=== PATIENT | female | born 1970 | race Caucasian/White ===

== ENCOUNTER 2019-07-10 21:59 | Emergency (ER) | payer OTHER ==
[2019-07-10 22:06] VITALS: TEMP 98.3
[2019-07-10 22:39] VITALS: RESP 18
[2019-07-10] MEDS: SODIUM CHLORIDE 0.9% 1,000 ML IV ONE (22:57)
[2019-07-10 23:05] LABS: Basophils # (A) 0.1 k/uL (0-0.2); Basophils % (A) 1 %; Eosinophils # (A) 0.7 k/uL (0-0.7); Eosinophils % (A) 10 %; HCT 39.8 % (34.0-46.0); HGB 12.6 gm/dL (11.4-16.0); Lymphocytes # (A) 1.2 k/uL (1.0-4.8); Lymphocytes % (A) 17 %; MCH 30.6 pg (25.0-35.0); MCHC 31.7 g/dL (31.0-37.0); MCV 96.5 fL (80.0-100.0); Mean Platelet Volume 10.3; Monocytes # (A) 0.5 k/uL (0-1.0); Monocytes % (A) 7 %; Neutrophils # (A) 4.7 k/uL (1.3-7.7); Neutrophils % (A) 64 %; Platelet Count 259 k/uL (150-450); RBC 4.13 m/uL (3.80-5.40); RDW 11.8 % (11.5-15.5); WBC 7.4 k/uL (3.8-10.6)
--- NOTE | 2019-07-10 23:05 | ED ---
Dizziness [facility] - General Chief Complaint: Dizziness Stated Complaint: Allergic reaction Time Seen by Provider: 07/10/19 22:05 Source: patient Mode of arrival: ambulatory Limitations: no limitations - History of Present Illness Initial Comments: this patient is a 48-year-old woman who presents to be evaluated for an episode of lightheadedness that had come on tonight when she was getting ready for work. The patient had earlier in the day applied some permethrin cream. She states that she was in the shower washing it off and getting ready to go to work when she felt like she might pass out. She states she was feeling lightheaded and dizzy. She also noted that her hands were feeling tingly. When she got out of the shower her significant other states that she appeared to be a little confused or disoriented. The patient states that she felt this way for 20-30 minutes and then was feeling better by the time she got here. The patient had called and for work and then decided to be evaluated here. She did not experience any chest pain, palpitations, dyspnea or diaphoresis. MD Complaint: lightheadedness, near syncope -: minutes(s) Timing: gradual onset Description: lightheadedness History of Same: No History of Trauma: No Severity: moderate Improves With: nothing Worsens With: nothing Associated Symptoms: denies other symptoms - Related Data Allergies Allergy/AdvReac Type Severity Reaction Status Date / Time No Known Allergies Allergy Verified 07/10/19 22:03 Review of Systems ROS Statement: Those systems with pertinent positive or pertinent negative responses have been documented in the HPI. ROS Other: All systems not noted in ROS Statement are negative. Constitutional: Denies: fever Eyes: Denies: vision change Respiratory: Denies: cough, dyspnea Cardiovascular: Reports: syncope (near-syncope). Denies: chest pain, palpitations, orthopnea Gastrointestinal: Denies: abdominal pain, nausea, vomiting, diarrhea, melena, hematochezia Genitourinary: Denies: dysuria, hematuria Musculoskeletal: Denies: back pain Skin: Denies: rash Neurological: Denies: headache, weakness, numbness Past Medical History Past Medical History: Diabetes Mellitus, Hypertension History of Any Multi-Drug Resistant Organisms: None Reported Past Surgical History: Cholecystectomy, Hernia Repair, Tubal Ligation Past Psychological History: No Psychological Hx Reported Smoking Status: Never smoker Past Alcohol Use History: None Reported Past Drug Use History: None Reported General Exam Limitations: no limitations General appearance: alert, in no apparent distress Head exam: Present: atraumatic, normocephalic Eye exam: Present: normal appearance. Absent: scleral icterus, conjunctival injection ENT exam: Present: mucous membranes dry Neck exam: Present: normal inspection Respiratory exam: Present: normal lung sounds bilaterally. Absent: respiratory distress, wheezes, rales, rhonchi, stridor Cardiovascular Exam: Present: regular rate, normal rhythm, normal heart sounds. Absent: systolic murmur, diastolic murmur, rubs, gallop GI/Abdominal exam: Present: soft. Absent: distended, tenderness, guarding, rebound, rigid, mass Extremities exam: Present: normal inspection, normal capillary refill. Absent: pedal edema, calf tenderness Back exam: Present: normal inspection. Absent: CVA tenderness (R), CVA tenderness (L) Neurological exam: Present: alert, oriented X3, CN II-XII intact. Absent: motor sensory deficit Skin exam: Present: warm, dry, intact, normal color. Absent: rash Course Vital Signs 07/10/19 07/10/19 22:00 22:06 Temperature 98.3 F Pulse Rate 81 85 Respiratory 16 18 Rate Blood Pressure 145/77 139/84 O2 Sat by Pulse 96 97 Oximetry EKG Findings - EKG Results: EKG: interpreted by COLEEN CAMPOS, sinus rhythm (rate 82 bpm), normal axis, normal QRS, normal ST/T - [place], Pacemaker, Normal: Normal tracing: normal tracing Medical Decision Making - Lab Data Result diagrams: 07/10/19 22:45 07/10/19 22:45 Lab Results 07/10/19 07/10/19 07/10/19 Range/Units 22:45 22:45 23:02 WBC 7.4 (3.8-10.6) k/uL RBC 4.13 (3.80-5.40) m/uL Hgb 12.6 (11.4-16.0) gm/dL Hct 39.8 (34.0-46.0) % MCV 96.5 (80.0-100.0) fL MCH 30.6 (25.0-35.0) pg MCHC 31.7 (31.0-37.0) g/dL RDW 11.8 (11.5-15.5) % Plt Count 259 (150-450) k/uL Neutrophils % 64 % Lymphocytes % 17 % Monocytes % 7 % Eosinophils % 10 % Basophils % 1 % Neutrophils # 4.7 (1.3-7.7) k/uL Lymphocytes # 1.2 (1.0-4.8) k/uL Monocytes # 0.5 (0-1.0) k/uL Eosinophils # 0.7 (0-0.7) k/uL Basophils # 0.1 (0-0.2) k/uL Sodium 135 L (137-145) mmol/L Potassium 4.2 (3.5-5.1) mmol/L Chloride 102 (98-107) mmol/L Carbon Dioxide 27 (22-30) mmol/L Anion Gap 6 mmol/L BUN 17 (7-17) mg/dL Creatinine 1.05 H (0.52-1.04) mg/dL Est GFR (CKD-EPI)AfAm 74 (>60 ml/min/1.73 sqM) Est GFR (CKD-EPI)NonAf 64 (>60 ml/min/1.73 sqM) Glucose 331 H (74-99) mg/dL Calcium 10.0 (8.4-10.2) mg/dL Urine HCG, Qual Not Detected (Not Detectd) Disposition Clinical Impression: Hyperglycemia Disposition: HOME SELF-CARE Condition: Good Instructions (If sedation given, give patient instructions): Dizziness (ED), Diabetic Hyperglycemia (ED) Is patient prescribed a controlled substance at d/c from ED?: No Referrals: Feliz Bush MD [Primary Care Provider] - 1-2 days
[2019-07-10 23:18] LABS: Potassium 4.2 mmol/L (3.5-5.1)
[2019-07-11] MEDS ORDERED: INSULIN REGULAR 100 UNIT/ML VIAL SQ STA (00:17)
[2019-07-11] MEDS ORDERED: SODIUM CHLORIDE 0.9% 1,000 ML IV ONE (00:17)
[2019-07-11 01:17] LABS: Glucose,Whole Blood 315 mg/dL (75-99)
[2019-07-11] MEDS: SODIUM CHLORIDE 0.9% 1,000 ML IV ONE (01:46)
[2019-07-11 02:21] VITALS: BP 130/83; PULSE 71
== END 2019-07-11 01:51 | disposition home or self-care (01) ==
LOC: MERGE 21:59 → EC 21:59
DX: E11.65 Type 2 diabetes mellitus with hyperglycemia (principal); R42 Dizziness and giddiness; Z53.20 Procedure and treatment not carried out because of patient's decision for unspecified reasons
CPT/HCPCS: 36415; 80048; 81025; 85025; 93005; 99284

== ENCOUNTER → 2019-09-30 | Outpatient (CLI) | payer OTHER ==
--- NOTE | 2019-09-30 14:54 | US ---
EXAMINATION TYPE: US pelvis complete transvag DATE OF EXAM: 09/30/2019 COMPARISON: NONE CLINICAL HISTORY: N92.0 Menorrhagia. TECHNIQUE: . Transabdominal sonographic images of the pelvis were acquired. Transvaginal sonographi c images were medically necessary to better assess the following anatomy: uterus and ovaries Date of LMP: 1 week ago EXAM MEASUREMENTS: Uterus: 9.0 x 4.6 x 4.7 cm Endometrial Stripe: 0.4 cm Right Ovary: Obscured by bowel gas Left Ovary: Obscured by bowel gas 1. Uterus: Anteverted heterogeneous echotexture. Hypoechoic area measuring 1.5 x 1.1 x 1.6 cm, pos sible fibroid vs other 2. Endometrium: wnl 3. Right Ovary: Obscured by overlying bowel gas 4. Left Ovary: Obscured by overlying bowel gas 5. Bilateral Adnexa: wnl as visualized, obscured by bowel gas 6. Posterior cul-de-sac: wnl IMPRESSION: 1. Diffusely heterogenous uterine myometrium with multiple probable small noncircumscribed leiomyomas and a solitary probable leiomyoma that is well-circumscribed measuring 1.6 cm. 2. Obscuration of the bilateral ovaries by overlying bowel gas.
== END | disposition home or self-care (01) ==
LOC: RADUSWWP 13:56
PROVIDERS: ATTEND Obstetrics & Gynecology
DX: N85.8 Other specified noninflammatory disorders of uterus (principal); N92.0 Excessive and frequent menstruation with regular cycle
CPT/HCPCS: 76830; 76856

== ENCOUNTER → 2020-01-29 | Outpatient (CLI) | payer OTHER ==
[2020-01-29 10:34] LABS: Basophils % (A) 1 %; Eosinophils # (A) 0.4 k/uL (0-0.7); Eosinophils % (A) 5 %; HCT 29.1 % (34.0-46.0); HGB 9.2 gm/dL (11.4-16.0); Hypochromasia Slight; Lymphocytes # (A) 1.4 k/uL (1.0-4.8); Lymphocytes % (A) 16 %; MCH 32.2 pg (25.0-35.0); MCHC 31.7 g/dL (31.0-37.0); MCV 101.8 fL (80.0-100.0); Macrocytosis Slight; Mean Platelet Volume 9.7; Monocytes # (A) 0.7 k/uL (0-1.0); Monocytes % (A) 8 %; Neutrophils # (A) 6.2 k/uL (1.3-7.7); Neutrophils % (A) 70 %; Platelet Count 289 k/uL (150-450); RBC 2.86 m/uL (3.80-5.40); RDW 12.7 % (11.5-15.5); WBC 8.9 k/uL (3.8-10.6)
== END | disposition home or self-care (01) ==
LOC: LABWHC1 08:44
PROVIDERS: ATTEND Obstetrics & Gynecology
DX: Z01.818 Encounter for other preprocedural examination (principal)
CPT/HCPCS: 36415; 85025

== ENCOUNTER 2020-02-02 06:21 | Day surgery (SDC) | payer OTHER ==
[2020-01-28 08:38] VITALS: BMI 39.4
--- NOTE | 2020-02-01 16:25 | P.HPOB ---
History of Present Illness H&P Date: 02/01/20 Chief Complaint: Dysfunctional uterine bleeding Kimberly is a 49 year old female who has dysfunctional uterine bleeding. Symptoms have been worsening over time and have been present for approximately 22 years. She is interested in a permanent solution to this and she has multiple medical problems that had to be considered when discussing this type of surgery. She is scheduled for a D&C with hysteroscopy and NovaSure ablation. She is aware the small risk of concurrent cancer but declines separate surgery or separate biopsy. Her ultrasound is unremarkable with a point force and medial lining as well. She does have hypertension and diabetes for which she takes multiple medications and a NovaSure would be certainly safer than major surgery for her as well. On physical exam this is a obese female whose HEENT is unremarkable. Her heart is regular, lungs are clear abdomen soft and obese. Bowel sounds are noted. Pelvic exam is otherwise unremarkable. Past Medical History Past Medical History: Diabetes Mellitus, Fibromyalgia, GERD/Reflux, Hypertension Additional Past Medical History / Comment(s): MENORRHAGIA History of Any Multi-Drug Resistant Organisms: None Reported Past Surgical History: Section, Cholecystectomy, Hernia Repair, Tubal Ligation Additional Past Surgical History / Comment(s): COLONOSCOPY/EGD. , STATES "ABDOMINAL HERNIA" Past Anesthesia/Blood Transfusion Reactions: No Reported Reaction, Motion Sickness Past Psychological History: No Psychological Hx Reported Smoking Status: Never smoker Past Alcohol Use History: None Reported Past Drug Use History: None Reported - Past Family History Father Family Medical History: Deep Vein Thrombosis (DVT) Mother Family Medical History: No Reported History Medications and Allergies Home Medications Medication Instructions Recorded Confirmed Type Albuterol Inhaler [Ventolin Hfa 1 puff INHALATION DIRECTED PRN 01/28/20 01/28/20 History Inhaler] DULoxetine HCL [Cymbalta] 60 mg PO DAILY 01/28/20 01/28/20 History Insulin Glargine [Lantus] 25 unit SQ HS 01/28/20 01/28/20 History Insulin Lispro [humaLOG Kwikpen] 10 unit SQ AC-BRKFST 01/28/20 01/28/20 History Insulin Lispro [humaLOG Kwikpen] 12 unit SQ AC-SUPPER 01/28/20 01/28/20 History Insulin Lispro [humaLOG Kwikpen] 17 unit SQ AC-LUNCH 01/28/20 01/28/20 History [place]-3 Fatty Acids/Fish Oil [Fish 1 each PO DAILY 01/28/20 01/28/20 History Oil 1,000 mg Softgel] Pioglitazone [Actos] 30 mg PO DAILY 01/28/20 01/28/20 History Vitamin B Complex 1 each PO DAILY 01/28/20 01/28/20 History metFORMIN HCL [Glucophage] 500 mg PO BID 01/28/20 01/28/20 History Allergies Allergy/AdvReac Type Severity Reaction Status Date / Time No Known Allergies Allergy Verified 01/28/20 08:22 Exam Osteopathic Statement: *. No significant issues noted on an osteopathic structural exam other than those noted in the History and Physical/Consult. - OBG Physical Exam Breast: both: normal (no masses) Abdomen: bowel sounds normal, no diffuse tenderness, no bruit present, no guarding noted, no hepatomegaly, no splenomegaly, no mass Vulva: both: normal Vagina: normal moisture, no discharge Cervix: no lesion, no discharge Uterus: normal size, normal contour Adnexa: both: normal Anus/Rectum: normal perianal skin, no rectal mass, no hemorrhoids, heme negative
[~2020-02-02 06:21] MED LIST: Pre Op ABX Message 1 EACH MISC MISCELLANE ONE
[2020-02-02 06:52] LABS: Glucose,Whole Blood 244 mg/dL (75-99)
[2020-02-02] MEDS ORDERED: LIDOCAINE 1% (10MG/ML) FOR IV START INTRADERMA ONE (06:57)
[2020-02-02] MEDS ORDERED: LACTATED RINGERS 1,000 ML IV ONE (06:57)
[2020-02-02] MEDS ORDERED: ONDANSETRON 4 MG/2 ML VIAL ONE (07:05)
[2020-02-02] MEDS ORDERED: DEXAMETHASONE SOD PHOSPHATE 10 MG/ML 1 ML VIAL IV ONE (07:05)
[2020-02-02] MEDS ORDERED: ONDANSETRON 4 MG/2 ML VIAL IVP ONE (07:05)
[2020-02-02] MEDS ORDERED: PROPOFOL 10 MG/ML 20 ML VIAL IV ONE (07:23)
[2020-02-02] MEDS ORDERED: KETOROLAC 30 MG/ML 1 ML VIAL ONE (07:23)
[2020-02-02] MEDS ORDERED: fentaNYL (PF) 50 MCG/ML 2 ML AMP ONE (07:23)
[2020-02-02] MEDS ORDERED: LIDOCAINE 1% INJ 10MG/ML (20 ML MDV) ONE (07:23)
[2020-02-02] MEDS ORDERED: MIDAZOLAM 2 MG/2 ML VIAL ONE (07:23)
[2020-02-02] MEDS ORDERED: SUCCINYLCHOLINE CHLORIDE 100 MG/5 ML SYR IV ONE (07:23)
--- NOTE | 2020-02-02 08:02 | P.OP ---
Date of Procedure: 02/02/20 Preoperative Diagnosis: Dysfunctional uterine bleeding Postoperative Diagnosis: Same Procedure(s) Performed: D&C with hysteroscopy and NovaSure Anesthesia: PELON Surgeon: Rod Ventura Estimated Blood Loss (ml): 3 Pathology: other (Uterine curettings) Condition: stable Disposition: same day Operative Findings: Pathology pending Description of Procedure: Patient was taken to the operating suite where a general anesthetic was found be adequate. She was prepped and draped in normal sterile fashion and placed in dorsal lithotomy position. Initially a speculum was inserted into the vagina and the anterior lip of the cervix was identified and grasped with surgeon's then dilated and sounded to 9 cm. Once this was accomplished camera was inserted. No gross pathology was noted therefore camera was removed and sharp curettings of the endometrium was obtained. All tissues collected and placed on Telfa area then sent to pathology. NovaSure system was then inserted with a length of 4 and a width of 2.5 it was tested and passed its patency test it was enabled and burned for 65 seconds. Conclusion the burn NovaSure system was removed and camera was reinserted with good burn noted. All incidents were then removed. Sponge, lap, needle counts were all correct 2. Patient was then taken to the recovery room in stable and satisfactory condition. Plan - Discharge Summary Discharge Rx Participant: Yes New Discharge Prescriptions: No Action Albuterol Inhaler [Ventolin Hfa Inhaler] 1 puff INHALATION DIRECTED PRN PRN Reason: Shortness Of Breath DULoxetine HCL [Cymbalta] 60 mg PO DAILY metFORMIN HCL [Glucophage] 500 mg PO BID Insulin Glargine [Lantus] 25 unit SQ HS Vitamin B Complex 1 each PO DAILY [place]-3 Fatty Acids/Fish Oil [Fish Oil 1,000 mg Softgel] 1 each PO DAILY Insulin Lispro [humaLOG Kwikpen] 10 unit SQ AC-BRKFST Insulin Lispro [humaLOG Kwikpen] 17 unit SQ AC-LUNCH Insulin Lispro [humaLOG Kwikpen] 12 unit SQ AC-SUPPER Pioglitazone [Actos] 30 mg PO DAILY Discharge Medication List Albuterol Inhaler [Ventolin Hfa Inhaler] 1 puff INHALATION DIRECTED PRN 01/28/20 [History] DULoxetine HCL [Cymbalta] 60 mg PO DAILY 01/28/20 [History] Insulin Glargine [Lantus] 25 unit SQ HS 01/28/20 [History] Insulin Lispro [humaLOG Kwikpen] 10 unit SQ AC-BRKFST 01/28/20 [History] Insulin Lispro [humaLOG Kwikpen] 12 unit SQ AC-SUPPER 01/28/20 [History] Insulin Lispro [humaLOG Kwikpen] 17 unit SQ AC-LUNCH 01/28/20 [History] [place]-3 Fatty Acids/Fish Oil [Fish Oil 1,000 mg Softgel] 1 each PO DAILY 01/28/20 [History] Pioglitazone [Actos] 30 mg PO DAILY 01/28/20 [History] Vitamin B Complex 1 each PO DAILY 01/28/20 [History] metFORMIN HCL [Glucophage] 500 mg PO BID 01/28/20 [History]
[2020-02-02 08:14] LABS: Glucose,Whole Blood 217 mg/dL (75-99)
[2020-02-02 08:19] VITALS: TEMP 96.9
[2020-02-02] MEDS ORDERED: SODIUM CHLORIDE 0.9% 1,000 ML IV ONE (08:37)
[2020-02-02 09:20] VITALS: BP 139/73; PULSE 78; RESP 16
== END 2020-02-02 09:49 | disposition home or self-care (01) ==
LOC: OR 06:21
PROVIDERS: ATTEND Obstetrics & Gynecology
DX: N93.8 Other specified abnormal uterine and vaginal bleeding (principal); N84.0 Polyp of corpus uteri; J45.909 Unspecified asthma, uncomplicated; I10 Essential (primary) hypertension; E11.9 Type 2 diabetes mellitus without complications; N28.9 Disorder of kidney and ureter, unspecified; M79.7 Fibromyalgia; K21.9 Gastro-esophageal reflux disease without esophagitis; Z90.49 Acquired absence of other specified parts of digestive tract; Z79.4 Long term (current) use of insulin; Z79.899 Other long term (current) drug therapy; Z98.51 Tubal ligation status; Z98.891 History of uterine scar from previous surgery; Z82.49 Family history of ischemic heart disease and other diseases of the circulatory system
CPT/HCPCS: 84703; 58563; J2250; J2405; J2001; J3010; J1885; J0330; J2704; 88305

== ENCOUNTER → 2020-02-25 | Outpatient (CLI) | payer SELFPAY ==
--- NOTE | 2020-02-26 14:34 | MM ---
Reason for exam: screening (asymptomatic). Last mammogram was performed 5 years and 10 months ago. History: Family history of breast cancer in paternal aunt. Physical Findings: A clinical breast exam by your physician is recommended on an annual basis and results should be correlated with mammographic findings. MG Screening Mammo w CAD Bilateral CC and MLO view(s) were taken. Prior study comparison: April 12, 2014, bilateral MG screening mammo w CAD. There are scattered fibroglandular densities. There is no discrete abnormality. No significant changes when compared with prior studies. ASSESSMENT: Negative, BI-RAD 1 RECOMMENDATION: Routine screening mammogram of both breasts in 1 year.
== END | disposition home or self-care (01) ==
LOC: RADMAMWWP 13:05
PROVIDERS: ATTEND Obstetrics & Gynecology
DX: Z12.31 Encounter for screening mammogram for malignant neoplasm of breast (principal)
CPT/HCPCS: 77067

== ENCOUNTER → 2020-04-25 | Outpatient (CLI) | payer OTHER ==
--- NOTE | 2020-04-25 10:53 | MR ---
EXAMINATION TYPE: MR knee LT wo con DATE OF EXAM: 04/25/2020 COMPARISON: None HISTORY: Left Knee Pain TECHNIQUE: Multiplanar, multisequence imaging of the left knee is performed without IV contrast. FINDINGS: Exam is limited by motion artifact. There is hypertrophic changes and narrowing of the join t space compatible with severe osteoarthritis. No erosive changes. Medial collateral lateral collateral ligaments are intact. There is ill definition of the insertion o f the ACL suggestive of strain. PCL is intact. Abnormal signal in the anterior horn of the lateral meniscus and posterior horn of the medial meniscu s compatible with tear. Subcutaneous edema is seen and there is a small amount of fluid in the suprapatellar bursa. Tiny area of abnormal signal within the lateral margin of the bursa could represent a small foreign body. Ther e does appear to be a grade III chondromalacia of the lateral patellar facet. Possible small cartilag inous fragment in the differential diagnosis. Patellar and quadriceps tendons intact. No diagnostic evidence of fracture. No sizable area of marrow edema. A small focal area of marrow danny ma involving the articular surface of the knee joint likely post arthritic. Chondromalacia the articu lar femoral cartilage noted. IMPRESSION: 1. Limited exam due to severe motion demonstrates findings compatible with severe osteoarthritis. Deg enerative meniscal tears involving the anterior horn of the lateral meniscus and posterior horn of th e medial meniscus. 2. Ill definition of the insertion of the ACL near the intercondylar notch suggestive of strain witho ut evidence of definite tear. 3. Small suprapatellar joint effusion with changes of chondromalacia
== END | disposition home or self-care (01) ==
LOC: RADMRIMAIN 09:36
PROVIDERS: ATTEND Orthopaedic Surgery
DX: S83.242A Other tear of medial meniscus, current injury, left knee, initial encounter (principal); M25.462 Effusion, left knee

== ENCOUNTER → 2020-05-16 | Outpatient (CLI) | payer OTHER ==
[2020-05-16 11:51] LABS: Basophils # (A) 0.1 k/uL (0-0.2); Basophils % (A) 1 %; Eosinophils # (A) 0.7 k/uL (0-0.7); Eosinophils % (A) 8 %; HCT 41.3 % (34.0-46.0); HGB 13.2 gm/dL (11.4-16.0); Lymphocytes # (A) 1.7 k/uL (1.0-4.8); Lymphocytes % (A) 19 %; MCH 31.5 pg (25.0-35.0); MCHC 31.9 g/dL (31.0-37.0); MCV 98.8 fL (80.0-100.0); Monocytes # (A) 0.6 k/uL (0-1.0); Monocytes % (A) 7 %; Neutrophils # (A) 5.7 k/uL (1.3-7.7); Neutrophils % (A) 64 %; Platelet Count 237 k/uL (150-450); RBC 4.18 m/uL (3.80-5.40); RDW 13.1 % (11.5-15.5); WBC 8.9 k/uL (3.8-10.6)
[2020-05-16 18:45] LABS: Anion Gap 8.1 mmol/L (4.00-12.00); Carbon Dioxide 29.9 mmol/L (21.6-31.8); Potassium 4.7 mmol/L (3.5-5.5)
== END | disposition home or self-care (01) ==
LOC: LABWHC1 10:31
PROVIDERS: ATTEND Orthopaedic Surgery
DX: Z01.812 Encounter for preprocedural laboratory examination (principal); M23.92 Unspecified internal derangement of left knee
CPT/HCPCS: 36415; 80051; 85025

== ENCOUNTER 2020-06-29 09:43 | Day surgery (SDC) | payer OTHER ==
[2020-06-24 14:47] VITALS: BMI 45.4
--- NOTE | 2020-06-28 14:40 | HP ---
HISTORY AND PHYSICAL DATE OF SURGERY: 06/29/2020 Pebbles Blanc is a 49-year-old patient seen with progressive left knee pain. We discussed options, she elected to proceed with left knee arthroscopy. Consent was obtained. PAST MEDICAL HISTORY: Hypertension, insulin-dependent diabetes, gout. PAST SURGICAL HISTORY: section, cholecystectomy. DAILY MEDICATIONS: Humalog, Lantus insulin, metformin, Dyazide, Cymbalta, allopurinol. ALLERGIES: None. SOCIAL HISTORY: She denies tobacco use. PHYSICAL EVALUATION OF THE LEFT KNEE: Range of motion is -2 to 90, mild to moderate effusion. Tenderness medial joint line. Positive medial Pratima's. Ligaments stable. Hip rotation without pain. Distal neurovascular exam is intact. LEFT KNEE RADIOGRAPHS: Revealed osteoarthritic changes. MRI left knee revealed meniscal tears involving both medial and lateral meniscus as well as osteoarthritic changes and an intra-articular effusion. IMPRESSION: 1. Internal derangement, left knee with meniscal tear. 2. Left knee osteoarthritis. 3. Insulin-dependent diabetes. 4. Hypertension. 5. Gout. PLAN: Left knee arthroscopy with partial meniscectomy, partial synovectomy and debridement. MMODL / IJN: [id number] /
[~2020-06-29 09:43] MED LIST changes: +DEXAMETHASONE SOD PHOSPHATE 4 MG/ML 1 ML VIAL IV ONE; +LACTATED RINGERS 1,000 ML IV SCH; +ONDANSETRON 4 MG/2 ML VIAL IVP ONE; -Pre Op ABX Message 1 EACH MISC MISCELLANE ONE
[2020-06-29] MEDS ORDERED: LACTATED RINGERS 1,000 ML IV ONE ×3 (10:20→13:30)
[2020-06-29] MEDS ORDERED: LIDOCAINE 1% (10MG/ML) FOR IV START INTRADERMA ONE (10:20)
[2020-06-29 10:29] LABS: Glucose,Whole Blood 256 mg/dL (75-99)
[2020-06-29] MEDS ORDERED: INSULIN ASPART (NovoLOG) 100 UNIT/ML VIAL SQ ONE (10:32)
[2020-06-29] MEDS ORDERED: LIDOCAINE 1% INJ 10MG/ML (20 ML MDV) ONE (12:06)
[2020-06-29] MEDS ORDERED: HYDROmorphone (PF) 1 MG/ML ONE (12:06)
[2020-06-29] MEDS ORDERED: SUCCINYLCHOLINE CHLORIDE 100 MG/5 ML SYR IV ONE (12:06)
[2020-06-29] MEDS ORDERED: PROPOFOL 10 MG/ML 20 ML VIAL IV ONE (12:06)
[2020-06-29] MEDS ORDERED: MIDAZOLAM 2 MG/2 ML VIAL ONE (12:06)
[2020-06-29] MEDS ORDERED: fentaNYL (PF) 50 MCG/ML 2 ML AMP ONE (12:06)
[2020-06-29] MEDS ORDERED: BUPIVACAINE (PF) 0.25% 30 ML VIAL INTRAARTIC ONE (12:11)
--- NOTE | 2020-06-29 13:01 | P.OP ---
Date of Procedure: 06/29/20 Preoperative Diagnosis: Internal derangement left knee Postoperative Diagnosis: 1. Tear medial meniscus left knee 2. Grade 2/3 chondromalacia medial femoral condyle left knee 3. Grade 2/3 chondromalacia patella left knee 4. Reactive synovitis medial, lateral and suprapatellar compartments left knee Procedure(s) Performed: 1. Arthroscopic partial medial meniscectomy left knee 2. Arthroscopic chondroplasty medial femoral condyle left knee 3. Arthroscopic chondroplasty patella left knee 4. Arthroscopic partial synovectomy medial, lateral and suprapatellar compartments left knee Anesthesia: DOTTYA, local Surgeon: Porter Herbert Estimated Blood Loss (ml): 7 Pathology: none sent Condition: stable Disposition: PACU Indications for Procedure: 49-year-old patient seen with progressive left knee pain. After treatment options were discussed, she elected to proceed with arthroscopy. Operative Findings: See description of procedure Description of Procedure: Patient was taken to the operative suite. Patient underwent a general anesthetic by the department of anesthesia. Patient was given preoperative antibiotics. The left lower extremity was placed in a well-padded arthroscopic leg perales. The left leg was prepped and draped in the normal sterile orthopedic fashion. A lateral parapatellar and suprapatellar incision was made. Trochars were inserted. Arthroscopy was initiated. Suprapatellar pouch reve aled diffuse thick reactive synovitis. The patellofemoral joint appeared to articulate congruently. There was grade 2/3 chondromalacia of the patella with some diffuse osteochondral tears present. The scope was guided into the medial gutter. No loose bodies or plica were identified. The scope was then guided into the medial compartment. A medial parapatellar incision was made. Trocar inserted followed by probe. There was a complex tear posterior horn medial meniscus. There were grade 2/3 chondromalacia changes medial femoral condyle with diffuse osteochondral tears present. There was thick reactive synovitis anteriorly. I performed a partial medial meniscectomy getting down to stable tissue. I performed a chondroplasty of the medial femoral condyle getting down to stable osteochondral tissue. I performed a partial synovectomy decompressing reactive synovitis. The residual meniscus was stable. The residual osteochondral surface was stable. There was good decompression of the synovitis. Scope and probe were then guided into the intercondylar notch. Cruciates were identified, probed and found to be stable. The scope and probe were then guided into lateral compartment. Lateral meniscus was probed and found be stable. There was mild grade 1 chondromalacia lateral compartment with no osteochondral tears. There was some thick reactive synovitis anteriorly. A motorize shaver was introduced and partial synovectomy was performed. Shaver was removed. There was good decompression of synovitis. The scope was in guided back into the suprapatellar compartment. I introduced a motorized shaver into the super patellar compartment. I debrided some piecemeal fragments of meniscus I encountered. I performed a partial synovectomy decompressing reactive synovitis. I performed a chondroplasty of the patella gained down to stable osteochondral tissue. The shaver was removed. The residual osteochondral surface appeared stable. There was good decompression of synovitis. I now took one more look on the entire knee, no residual debris. Instruments were now removed from the joint. The joint was infiltrated with .25% Marcaine. Steri- Strips were applied to the portal sites. Sterile dressings were applied. The patient was placed into a ASHLYN hose. No tourniquet was utilized. The patient was awakened, transferred to a bed and taken to recovery stable satisfactory condition.
[2020-06-29 13:05] VITALS: TEMP 97.6
[2020-06-29 13:12] LABS: Glucose,Whole Blood 230 mg/dL (75-99)
[2020-06-29] MEDS: HYDROmorphone 0.5 MG/0.5 ML SYRINGE IVP PRN ×4 (13:15→13:40)
[2020-06-29 14:02] VITALS: RESP 18
[2020-06-29 14:56] VITALS: BP 128/84; PULSE 87
== END 2020-06-29 15:00 | disposition home or self-care (01) ==
LOC: OR 09:43
PROVIDERS: ATTEND Orthopaedic Surgery
DX: M23.204 Derangement of unspecified medial meniscus due to old tear or injury, left knee (principal); M22.42 Chondromalacia patellae, left knee; M65.862 Other synovitis and tenosynovitis, left lower leg; M17.12 Unilateral primary osteoarthritis, left knee; E11.9 Type 2 diabetes mellitus without complications; I10 Essential (primary) hypertension; M10.9 Gout, unspecified; K00.0 Anodontia; Z98.891 History of uterine scar from previous surgery; Z90.49 Acquired absence of other specified parts of digestive tract; Z98.890 Other specified postprocedural states; Z79.4 Long term (current) use of insulin; Z79.899 Other long term (current) drug therapy
CPT/HCPCS: 81025; 82565; 84520; 29881; J2250; J1100; J0690; J2405; J2001; J3010; J1170 ×2; J0330; J2704

== ENCOUNTER → 2020-08-31 | Outpatient (CLI) | payer OTHER ==
[2020-08-31 08:09] LABS: Basophils % (A) 0 %; Eosinophils # (A) 0.6 k/uL (0-0.7); Eosinophils % (A) 6 %; HCT 37.1 % (34.0-46.0); HGB 12.2 gm/dL (11.4-16.0); Hypochromasia Slight; Lymphocytes # (A) 1.8 k/uL (1.0-4.8); Lymphocytes % (A) 17 %; MCH 32.8 pg (25.0-35.0); MCHC 32.9 g/dL (31.0-37.0); MCV 99.6 fL (80.0-100.0); Mean Platelet Volume 9.8; Monocytes # (A) 0.9 k/uL (0-1.0); Monocytes % (A) 9 %; Neutrophils # (A) 6.9 k/uL (1.3-7.7); Neutrophils % (A) 67 %; Platelet Count 266 k/uL (150-450); RBC 3.72 m/uL (3.80-5.40); RDW 13.4 % (11.5-15.5); WBC 10.4 k/uL (3.8-10.6)
[2020-08-31 08:23] LABS: Calcium 9.8 mg/dL (8.4-10.2); Potassium 4.5 mmol/L (3.5-5.1)
== END | disposition home or self-care (01) ==
LOC: LABPAT 07:41
PROVIDERS: ATTEND Obstetrics & Gynecology
DX: Z01.818 Encounter for other preprocedural examination (principal)
CPT/HCPCS: 36415; 80048; 85025; 93005

== ENCOUNTER 2020-09-01 05:51 | Inpatient (IN) | payer OTHER ==
[2020-08-25 14:52] VITALS: BMI 46.2
--- NOTE | 2020-08-31 12:26 | P.HPOB ---
History of Present Illness H&P Date: 08/31/20 Chief Complaint: Dysfunctional uterine bleeding, menorrhagia, dysmenorrhea Kimberly is a 42-year-old female who has persistent bleeding which severely impacts her lifestyle. She relates that she also has dyspareunia and menorrhagia. She had a NovaSure that has failed in the past she is therefore scheduled for a little abdominal hysterectomy with bilateral salpingectomy, possible bilateral salpingo-oophorectomy. Risks/benefits/alternatives were reviewed with patient in detail and all questions were answered for her prior to proceeding to the operative. Due to her past history of 3 C-sections we are not offering a robotic hysterectomy. Risks did include but were not limited to bleeding and infection, damage to bladder or bowel, ureter damage, vascular injuries were nerve injuries. Potential need for further surgery. All questions are answered for her prior to proceeding to the operative room. Past Medical History Past Medical History: Diabetes Mellitus, Fibromyalgia, GERD/Reflux, Hypertension, Osteoarthritis (OA) Additional Past Medical History / Comment(s): having heavy menses, HISTORY OF LOW BLOOD COUNT. History of Any Multi-Drug Resistant Organisms: None Reported Past Surgical History: Section, Cholecystectomy, Hernia Repair, Tubal Ligation, Uterine Ablation Additional Past Surgical History / Comment(s): COLONOSCOPY/EGD. hiatal hernia repair, oral surgery, D&C,total left knee Past Anesthesia/Blood Transfusion Reactions: No Reported Reaction Additional Past Anesthesia/Blood Transfusion Reaction / Comment(s): no problems with prior blood transfusions Smoking Status: Never smoker - Past Family History Father Family Medical History: Deep Vein Thrombosis (DVT) Medications and Allergies Home Medications Medication Instructions Recorded Confirmed Type Albuterol Inhaler [Ventolin Hfa 1 puff INHALATION QID PRN 01/28/20 08/25/20 History Inhaler] DULoxetine HCL [Cymbalta] 60 mg PO QAM 01/28/20 08/25/20 History Insulin Glargine [Lantus] 15 unit SQ HS 01/28/20 08/25/20 History Insulin Lispro [humaLOG Kwikpen] 10 unit SQ AC-BRKFST 01/28/20 08/25/20 History Insulin Lispro [humaLOG Kwikpen] 12 unit SQ AC-SUPPER 01/28/20 08/25/20 History Insulin Lispro [humaLOG Kwikpen] 17 unit SQ AC-LUNCH 01/28/20 08/25/20 History [place]-3 Fatty Acids/Fish Oil [Fish 1 each PO DAILY 01/28/20 08/25/20 History Oil 1,000 mg Softgel] Vitamin B Complex 1 each PO DAILY 01/28/20 08/25/20 History metFORMIN HCL [Glucophage] 500 mg PO BID 01/28/20 08/25/20 History Calcitriol [Rocaltrol] 0.25 mcg PO SUWE 06/24/20 08/25/20 History Famotidine [Pepcid] 20 mg PO HS 06/24/20 08/25/20 History Ferrous Sulfate [Iron] 325 mg PO BID 06/24/20 08/25/20 History Folic Acid 1 mg PO DAILY 06/24/20 08/25/20 History Lasix(Dose Unknown) 1 tab PO QAM 06/24/20 08/25/20 History Magnesium Oxide 400 mg PO BID 06/24/20 08/25/20 History Pioglitazone [Actos] 45 mg PO DAILY 06/24/20 08/25/20 History Allergies Allergy/AdvReac Type Severity Reaction Status Date / Time No Known Allergies Allergy Verified 08/25/20 14:29 Exam Osteopathic Statement: *. No significant issues noted on an osteopathic structural exam other than those noted in the History and Physical/Consult. - OBG Physical Exam Breast: both: normal (no masses) Abdomen: bowel sounds normal, no diffuse tenderness, no bruit present, no guarding noted, no hepatomegaly, no splenomegaly, no mass Vulva: both: normal Vagina: normal moisture, no discharge Cervix: no lesion, no discharge Uterus: normal size, normal contour Adnexa: both: normal Anus/Rectum: normal perianal skin, no rectal mass, no hemorrhoids, heme negative
[~2020-09-01 05:51] MED LIST changes: -DEXAMETHASONE SOD PHOSPHATE 4 MG/ML 1 ML VIAL IV ONE; -LACTATED RINGERS 1,000 ML IV SCH; -ONDANSETRON 4 MG/2 ML VIAL IVP ONE; +ceFAZolin 3 GM in SODIUM CHLORIDE 0.9% 100 ML IVPB PRN
[2020-09-01] MEDS ORDERED: ONDANSETRON 4 MG/2 ML VIAL IVP ONE (06:07)
[2020-09-01] MEDS ORDERED: DEXAMETHASONE SOD PHOSPHATE 4 MG/ML 1 ML VIAL IV ONE (06:07)
[2020-09-01] MEDS ORDERED: LIDOCAINE 1% (10MG/ML) FOR IV START INTRADERMA PRN (06:07)
[2020-09-01] MEDS ORDERED: MIDAZOLAM 2 MG/2 ML VIAL IV PRN (06:07)
[2020-09-01 06:44] LABS: Glucose,Whole Blood 267 mg/dL (75-99)
[2020-09-01] MEDS: LACTATED RINGERS 1,000 ML IV SCH ×2 (06:46→12:26)
[2020-09-01] MEDS ORDERED: INSULIN ASPART (NovoLOG) 100 UNIT/ML VIAL SQ ONE ×2 (06:50→09:44)
[2020-09-01] MEDS ORDERED: fentaNYL (PF) 50 MCG/ML 2 ML AMP IV ONE (06:52)
[2020-09-01] MEDS ORDERED: HYDROmorphone 0.5 MG/0.5 ML SYRINGE IVP PRN (07:00)
[2020-09-01] MEDS ORDERED: ROCURONIUM 10 MG/ML (10 ML VIAL) IV ONE (07:35)
[2020-09-01] MEDS ORDERED: LIDOCAINE 1% INJ 10MG/ML (20 ML MDV) ONE (07:35)
[2020-09-01] MEDS ORDERED: PROPOFOL 10 MG/ML 20 ML VIAL IV ONE (07:35)
[2020-09-01] MEDS ORDERED: KETOROLAC 15 MG/ML 1 ML VIAL ONE (07:35)
[2020-09-01] MEDS ORDERED: fentaNYL (PF) 50 MCG/ML 2 ML AMP ONE (07:35)
[2020-09-01] MEDS ORDERED: SUCCINYLCHOLINE CHLORIDE 100 MG/5 ML SYR IV ONE (07:35)
[2020-09-01] MEDS ORDERED: NEOSTIGMINE 1 MG/ML 10 ML VIAL ONE (07:35)
[2020-09-01] MEDS ORDERED: GLYCOPYRROLATE 0.2 MG/ML 2 ML VIAL ONE (07:35)
[2020-09-01] MEDS ORDERED: HEPARIN SODIUM,PORCINE 5,000 UNIT/ML 1 ML VIAL ONE (07:35)
[2020-09-01] MEDS ORDERED: ONDANSETRON 4 MG/2 ML VIAL IVP PRN (09:14)
[2020-09-01] MEDS ORDERED: SIMETHICONE 80 MG CHEWABLE PO PRN (09:14)
[2020-09-01] MEDS ORDERED: ALBUTEROL NEBULIZED 2.5 MG/3 ML INHALATION PRN (09:22)
[2020-09-01 09:31] LABS: Glucose,Whole Blood 299 mg/dL (75-99)
--- NOTE | 2020-09-01 09:32 | P.OP ---
Date of Procedure: 09/01/20 Preoperative Diagnosis: Menorrhagia and pelvic pain Postoperative Diagnosis: Same with left hemorrhagic ovarian cyst and significant adhesions of the bladder to anterior uterine wall Procedure(s) Performed: Total abdominal hysterectomy with bilateral salpingectomy, left ovarian cystotomy with ovarian repair, lysis of adhesions on bladder Anesthesia: PELON Surgeon: Rod Ventura Boring And Filling Machine Operator #1: Alix Magallanes Estimated Blood Loss (ml): 50 IV fluids (ml): 700 Urine output (ml): 60 Pathology: other (Uterus, cervix, fallopian tubes) Condition: stable Disposition: floor Operative Findings: Pathology pending Description of Procedure: Patient was taken to the operating suite where general anesthetic was found be adequate. She was prepped and draped in normal sterile fashion and placed in dorsal supine position. Initially a Pfannenstiel skin incision was made and this incision was then carried through to the underlying layer of the fascia was second knife. Fascia was then nicked in the midline and this opening was extended laterally with Almonte scissors. Superior and inferior aspect of this incision were then grasped tented up and bluntly and sharply dissected off the r ectus muscles. Rectus muscles were then divided midline and sharp dissection the peritoneum was performed. This opening was then extended superiorly and inferiorly with good visualization of both bowel bladder. Self-retaining retractors in place and bladder blade was attached. Patient was then placed a very steep Trendelenburg position and bowels packed out of the operative field. Once this was completed 2 long Zahra's were placed on the adnexa bilaterally and uterus was elevated. First the fallopian tube pieces were identified and a Herbert clamp was clamped under the there were excised and then sutured. Left ovarian hemorrhagic cyst was noted and was drained. It was bleeding slightly at the end of the procedure and 3-0 Vicryl used to reapproximate the tissues to stop the bleeding. Once cysts removed and a clamps were placed over the round ligament tubal complexes tissues clamped cut and tied once this was completed uterus was moved somewhat superior and bladder flap was identified. Significant adhesions of the bladder to the anterior abdominal wall were noted gentle dissection of the bladder off of the uterus was then done with metastases scissors and some blunt dissection. Once bladder was completely out of the operative field he was then used to clamp the uterine vasculature bilaterally and tissue was clamped cut and tied. Moving inferiorly along the lateral border delivered uterus the cardinal and uterosacral ligaments were clamped cut and tied. Once to the level of the vaginal cuff the tissues clamped and cut and then the corners were tied and held. Uterus was then excised and cuff edges were delineated with Xu clamps. Once this was accomplished, corners reincorporated and 0 Vicryl suture was used to close the vaginal cuff in a running locking fashion. Pelvis was then irrigated. Once hemostasis was fully obtained and cuff completely closed we did begin to remove instruments area during this process we noted the left ovary was having some bleeding from the cyst that had been excised therefore 3-0 Vicryl was used to reapproximate the ovarian tissue in a running fashion. Around the ovary small amount of Surgicel's no was used to help guarantee hemostasis. All other incidents were then removed bowel packing was removed peritoneal layer was delayed with hemostats and closed with 0 Vicryl suture. Once this was completed fascial layer was closed with 0 Vicryl suture. One layer of 3-0 Vicryl was placed in deep subcuticular tissues to reapproximate skin and close space. Skin was then closed with 3-0 Vicryl in subcuticular fashion. Sponge, lap, needle counts were all correct 2. Patient was then taken to the recovery room in stable and satisfactory condition.
--- NOTE | 2020-09-01 11:02 | P.ANPRN ---
Procedure Note - Anesthesia - Epidural/Spinal Spinal Time Out Performed: Yes Date of Procedure: 09/01/20 Procedure Start Time: 06:51 Procedure Stop Time: 07:08 Location of Patient: PreOp Indication: Acute Post-Operative Pain Sedation Type: Sedate with meaningful contact maintained Preparation: Sterile Prep Position: Sitting Catheter: None Needle Guage: 25 Injectate: Other (Duramorph 300mcg, fentanyl 25mcg) Blood Aspirated: No Pain Paresthesia on Injection Noted: No Events: Uneventful and Well Tolerated
[2020-09-01 12:44] LABS: Glucose,Whole Blood 298 mg/dL (75-99)
[2020-09-01] MEDS: ceFAZolin 3 GM in SODIUM CHLORIDE 0.9% 100 ML IVPB SCH (16:01)
[2020-09-01] MEDS: KETOROLAC 15 MG/ML 1 ML VIAL IVP PRN (16:01)
[2020-09-01] MEDS: HEPARIN SODIUM,PORCINE 5,000 UNIT/ML 1 ML VIAL SQ SCH (16:01)
[2020-09-01 17:20] LABS: Glucose,Whole Blood 274 mg/dL (75-99)
--- NOTE | 2020-09-01 17:37 | P.CONS ---
History of Present Illness - Reason for Consult Consult date: 09/01/20 - History of Present Illness This is a 50-year-old female patient of Dr. Bush with known medical history significant for diabetes mellitus, fibromyalgia, GERD, asthma, hypertension, and osteoarthritis. She also has had heavy menstrual bleeding with menorrhea requiring ablation in January that was unsuccessful. She was admitted today with Dr. Pascal and underwent a total hysterectomy with salpingectomy, left ovarian cystostomy with ovarian repair, lysis of adhesions on bladder. Patient was seen resting in bed reports pain is a 5.5 out of 10, just had received Toradol but otherwise doing okay. Vital signs are stable temperature 97.5, pulse 90, blood pressure 125/70, pulse ox 96% on room air. Paz catheter is in place at this time. We'll follow patient along for medical management. Review of Systems At the time of my exam: CONSTITUTIONAL: Denies fever or chills. Denies malaise, weakness, weight gain or weight loss. CARDIOVASCULAR: Denies chest pain, orthopnea, PND, palpitations, or edema. RESPIRATORY: Denies cough, shortness of breath, or wheezing GASTROINTESTINAL: Denies diarrhea, constipation, nausea or vomiting. Positive mid abdominal pain MUSCULOSKELETAL: Denies myalgias. NEUROLOGIC: Denies numbness, tingling or weakness. ENDOCRINE: Denies fatigue, weight change, polydipsia or polyurina. GENITOURINARY: Denies burning, hematuria or urgency with micturation. History o f heavy menstrual cycles. HEMATOLOGIC: Denies history of anemia or bleeding. Past Medical History Past Medical History: Diabetes Mellitus, Fibromyalgia, GERD/Reflux, Hypertension, Osteoarthritis (OA) Additional Past Medical History / Comment(s): having heavy menses, HISTORY OF LOW BLOOD COUNT. History of Any Multi-Drug Resistant Organisms: None Reported Past Surgical History: Section, Cholecystectomy, Hernia Repair, Tubal Ligation, Uterine Ablation Additional Past Surgical History / Comment(s): COLONOSCOPY/EGD. hiatal hernia repair, oral surgery, D&C,total left knee Past Anesthesia/Blood Transfusion Reactions: No Reported Reaction Additional Past Anesthesia/Blood Transfusion Reaction / Comm: no problems with prior blood transfusions Smoking Status: Never smoker - Past Family History Father Family Medical History: Deep Vein Thrombosis (DVT) Mother Family Medical History: No Reported History Medications and Allergies Home Medications Medication Instructions Recorded Confirmed Type Albuterol Inhaler [Ventolin Hfa 1 puff INHALATION QID PRN 01/28/20 09/01/20 History Inhaler] DULoxetine HCL [Cymbalta] 60 mg PO QAM 01/28/20 09/01/20 History Insulin Glargine [Lantus] 15 unit SQ HS 01/28/20 09/01/20 History Insulin Lispro [humaLOG Kwikpen] 10 unit SQ AC-BRKFST 01/28/20 09/01/20 History Insulin Lispro [humaLOG Kwikpen] 12 unit SQ AC-SUPPER 01/28/20 09/01/20 History Insulin Lispro [humaLOG Kwikpen] 17 unit SQ AC-LUNCH 01/28/20 09/01/20 History [place]-3 Fatty Acids/Fish Oil [Fish 1 each PO DAILY 01/28/20 09/01/20 History Oil 1,000 mg Softgel] Vitamin B Complex 1 each PO DAILY 01/28/20 09/01/20 History metFORMIN HCL [Glucophage] 500 mg PO BID 01/28/20 09/01/20 History Calcitriol [Rocaltrol] 0.25 mcg PO SUWE 06/24/20 09/01/20 History Famotidine [Pepcid] 20 mg PO HS 06/24/20 09/01/20 History Ferrous Sulfate [Iron] 325 mg PO BID 06/24/20 09/01/20 History Folic Acid 1 mg PO DAILY 06/24/20 09/01/20 History Magnesium Oxide 400 mg PO BID 06/24/20 09/01/20 History Pioglitazone [Actos] 45 mg PO DAILY 06/24/20 09/01/20 History Allopurinol [Zyloprim] 100 mg PO DAILY 09/01/20 09/01/20 History Cetirizine HCl [Zyrtec] 10 mg PO DAILY 09/01/20 09/01/20 History Furosemide [Lasix] 20 mg PO DAILY 09/01/20 09/01/20 History Spironolactone 25 mg PO 09/01/20 History Allergies Allergy/AdvReac Type Severity Reaction Status Date / Time No Known Allergies Allergy Verified 08/25/20 14:29 Physical Exam Vitals: Vital Signs Temp Pulse Pulse Resp BP Pulse Ox 09/01/20 16:00 97.5 F L 95 15 125/70 96 09/01/20 14:00 97.6 F 86 15 126/79 95 09/01/20 13:30 90 15 133/80 95 09/01/20 12:58 86 15 116/71 96 09/01/20 12:40 88 15 103/60 95 09/01/20 12:25 95 15 118/75 95 09/01/20 12:11 97 F L 91 15 119/74 95 09/01/20 11:15 53 L 18 123/57 96 09/01/20 10:45 80 18 129/59 94 L 09/01/20 10:18 68 16 138/70 95 09/01/20 10:03 68 14 137/65 93 L 09/01/20 09:48 73 14 135/63 94 L 09/01/20 09:33 69 14 134/61 92 L 09/01/20 09:17 97.9 F 80 16 132/66 91 L 09/01/20 07:05 88 16 160/74 96 09/01/20 06:28 97.9 F 94 16 145/77 96 Intake and Output 09/01/20 09/01/20 09/01/20 06:59 14:59 22:59 Intake Total 100 700 Output Total 360 400 Balance 100 340 -400 Intake: IV 100 700 Output: Urine 310 400 Uretheral (Paz) 400 Estimated Blood Loss 50 Other: Weight 123.8 kg HEENT: Head is atraumatic, normocephalic. Pupils equal, round. Sclerae is anicteric. NECK: Supple. No JVD. No lymphadenopathy. No thyromegaly. LUNGS: Clear to auscultation. No wheezes or rhonchi. No intercostal retractions. HEART: Regular rate and rhythm. No murmur. ABDOMEN: Soft. Bowel sounds hypoactive. No masses. Mild tenderness on palpation. : Paz catheter in place. EXTREMITIES: No pedal edema. No calf tenderness. NEUROLOGICAL: Patient is awake, alert and oriented x3. Cranial nerves 2 through 12 are grossly intact. Results Labs: Abnormal Lab Results - Last 24 Hours (Table) 09/01/20 09/01/20 09/01/20 Range/Units 06:38 09:23 12:42 POC Glucose (mg/dL) 267 H 299 H 298 H (75-99) mg/dL Assessment and Plan Plan: 1. History of Abnormal uterine bleeding post ablation, total hysterectomy postop day 1. Vital signs are stable, pain is well controlled with Toradol as needed. Continue clear liquid diet and advance as tolerated. 2. Diabetes mellitus, Accu-Cheks before meals at bedtime on Levemir 15 units at bed along with NovoLog sliding scale. Actos 45 mg daily and metformin 500 mg twice a day 3. History of asthma, on albuterol nebulizers as needed 4. GERD on Pepcid 20 mg daily 5. Hypertension, on Aldactone and Lasix at home will monitor for the need to resume. 6. Fibromyalgia, on Cymbalta 60 mg daily 7. Iron deficiency, on iron 325MG twice a day 8. GI prophylaxis on Pepcid daily 9. DVT prophylaxis sequential compression devices on along with heparin subcu 10. Hyperglycemia, likely due to Decadron IV 1 home medications were resumed along with sliding scale Patient will be admitted to the hospital for minimum of 2 night stay. Discharge plan: Likely home with self-care Impression and plan of care have been directed as dictated by the signing physician. Zahra Ramos nurse practitioner acting as scribe for signing physician.
[2020-09-01] MEDS: INSULIN ASPART (NovoLOG) 100 UNIT/ML VIAL SQ SCH ×2 (17:44→20:23)
[2020-09-01] MEDS: HYDROcodone/APAP 7.5-325MG 1 EACH TAB PO PRN (20:14)
[2020-09-01] MEDS: SENNOSIDES-DOCUSATE SODIUM 1 EACH TAB PO SCH (20:14)
[2020-09-01] MEDS: metFORMIN 500 MG TAB PO SCH (20:15)
[2020-09-01] MEDS: INSULIN DETEMIR (LEVEMIR) 100 UNIT/ML SYR SQ SCH (20:15)
[2020-09-01 20:19] LABS: Glucose,Whole Blood 275 mg/dL (75-99)
[2020-09-01] MEDS: FAMOTIDINE 20 MG TAB PO SCH (20:23)
[2020-09-02] MEDS: HEPARIN SODIUM,PORCINE 5,000 UNIT/ML 1 ML VIAL SQ SCH ×4 (01:19→23:05)
[2020-09-02] MEDS: ceFAZolin 3 GM in SODIUM CHLORIDE 0.9% 100 ML IVPB SCH (01:19)
[2020-09-02] MEDS: HYDROcodone/APAP 7.5-325MG 1 EACH TAB PO PRN (04:34)
--- NOTE | 2020-09-02 07:15 | P.PN ---
Progress Note - Text 09/02/20 650am 50 year old female s/p valdemar with spinal duramorph for ost op pain control..Unfortunately she did not benefit from it as her pain score this morning was 6 with c/o nausea and vomiting. she also was complaining of pruritis. both these symptoms should subside soon and she will need oral as well as iv pain meds.
[2020-09-02 07:42] LABS: Glucose,Whole Blood 282 mg/dL (75-99)
[2020-09-02 08:03] LABS: Basophils % (A) 0 %; Eosinophils % (A) 0 %; HCT 33.6 % (34.0-46.0); HGB 10.8 gm/dL (11.4-16.0); Lymphocytes # (A) 1.3 k/uL (1.0-4.8); Lymphocytes % (A) 9 %; MCH 32.6 pg (25.0-35.0); MCHC 32.3 g/dL (31.0-37.0); Mean Platelet Volume 10.2; Monocytes # (A) 1.2 k/uL (0-1.0); Monocytes % (A) 8 %; Neutrophils # (A) 12.7 k/uL (1.3-7.7); Neutrophils % (A) 83 %; Platelet Count 317 k/uL (150-450); RBC 3.33 m/uL (3.80-5.40); RDW 12.6 % (11.5-15.5); WBC 15.3 k/uL (3.8-10.6)
[2020-09-02] MEDS ORDERED: SODIUM CHLORIDE 0.9% 500 ML 500 ML IV ONE (08:04)
[2020-09-02] MEDS: metFORMIN 500 MG TAB PO SCH ×2 (08:12→21:26)
[2020-09-02] MEDS: PIOGLITAZONE 45 MG TAB PO SCH (08:12)
[2020-09-02] MEDS: SENNOSIDES-DOCUSATE SODIUM 1 EACH TAB PO SCH ×2 (08:13→21:26)
[2020-09-02] MEDS: INSULIN ASPART (NovoLOG) 100 UNIT/ML VIAL SQ SCH ×5 (08:14→21:26)
--- NOTE | 2020-09-02 08:51 | P.PN ---
Progress Note - Text Progress Note Date: 09/02/20 I would this morning. She is alert and oriented 3 at this time. Earlier this morning she apparently was getting up to use the facilities and passed out and hit her head. This a bleed was witnessed. Her interval medicine physician did come almost immediately for evaluation. She is on neuro checks as precaution. At that time and sounds like her blood pressure dropped some and based on her description may have been a vagal reaction. She seems much better at this time she voices no other complaints. She does have a bruise on her left shoulder and a small bump her head. Her blood sugars have been in the 200s and internal medicine is working to try and lower these. The remaining minimal changes to her treatment today with may be a little bit more ambulation and trying to get her on a regular diet and very close continued observational care due to her recent fall. Hemoglobin is 10. She voices no other gross complaints. Heart regular, lungs clear, extremities without pain. Abdomen soft and her incision appears intact.
[2020-09-02] MEDS ORDERED: LASIX PO SCH (09:00)
[2020-09-02 09:13] LABS: Glucose,Whole Blood 347 mg/dL (75-99)
--- NOTE | 2020-09-02 09:56 | XR ---
EXAMINATION TYPE: XR chest 1V portable DATE OF EXAM: 09/02/2020 COMPARISON: 09/16/2014 HISTORY: Chest pain TECHNIQUE: Single frontal view of the chest is obtained. FINDINGS: Patchy density right medial lung base may reflect developing infiltrate. The cardiac silhouette size is within normal limits. The osseous structures are intact. IMPRESSION: 1. Patchy density right medial lung base may reflect developing infiltrate.
[2020-09-02] MEDS: LACTATED RINGERS 1,000 ML IV SCH (10:07)
--- NOTE | 2020-09-02 10:58 | CT ---
EXAMINATION TYPE: CT brain wo con DATE OF EXAM: 09/02/2020 COMPARISON: None. HISTORY: syncope post total hysterectomy CT DLP: 1070.4 mGycm. Automated Exposure Control for Dose Reduction was Utilized. TECHNIQUE: CT scan of the head is performed without contrast. FINDINGS: There is no acute intracranial hemorrhage, mass effect, or midline shift identified. The ventricles and sulci are within normal limits in size. Mckee-white matter differentiation is maintai pietro. The calvarium is intact. There is small mucous retention cyst or polyp in the posterior left sph enoid sinus otherwise the globes are intact and the visualized sinuses are clear. No suspicious opaci fication mastoid air cells. IMPRESSION: No acute intracranial hemorrhage or midline shift is seen.
[2020-09-02 12:01] LABS: Glucose,Whole Blood 339 mg/dL (75-99)
[2020-09-02] MEDS: KETOROLAC 15 MG/ML 1 ML VIAL IVP PRN ×2 (12:30→23:05)
[2020-09-02 12:34] LABS: Calcium 9.2 mg/dL (8.4-10.2); Potassium 4.7 mmol/L (3.5-5.1)
[2020-09-02] MEDS: DULoxetine HCL 60 MG CAPSULE.DR PO SCH (12:51)
--- NOTE | 2020-09-02 14:08 | P.PN ---
Subjective Progress Note Date: 09/02/20 HISTORY OF PRESENT ILLNESS This is a 50-year-old female patient of Dr. Bush with known medical history significant for diabetes mellitus, fibromyalgia, GERD, asthma, hypertension, and osteoarthritis. She also has had heavy menstrual bleeding with menorrhea requiring ablation in January that was unsuccessful. She was admitted today with Dr. Pascal and underwent a total hysterectomy with salpingectomy, left ovarian cystostomy with ovarian repair, lysis of adhesions on bladder. Patient was seen resting in bed reports pain is a 5.5 out of 10, just had received Toradol but otherwise doing okay. Vital signs are stable temperature 97.5, pulse 90, blood pressure 125/70, pulse ox 96% on room air. Paz catheter is in place at this time. We'll follow patient along for medical management. 09/02: Received call early this morning the patient had a fall in her room well with the nursing students. Patient states she bumped her head she fell forward onto the floor. Her Paz catheter was removed this morning. She states she is sore but better from yesterday. Pain is a #6/10. Initial blood pressure at the time of incident was low but improved on recheck and despite that, 500 mL fluid bolus was ordered. Around 9 in the morning, patient's nurse called the patient was hypotensive and A-Team was called. We arrived prior to the A-Team arrival to assess the patient. Patient was awake and alert. Her blood pressure was on the low side in the another 1 L of IV fluids ordered. Her heart rate was controlled. She has not voided since Paz was removed. At the time of nicolasa luation, patient was again hemodynamically stable. The following tests were ordered. Chest x-ray showed patchy density in the right medial lung base may reflect developing infiltrate. CAT scan of the brain showed no acute intracranial hemorrhage or midline shift. CBC revealed WBC of 15.3, hemoglobin 10.8, platelet count 317. Sodium 133 otherwise electrolytes normal, BUN 29 creatinine 1.1. Blood sugars running in the 200s to 300s. CK 206 D-dimer came back elevated at 1.81 and CTA of the chest was ordered which revealed no evidence of pulmonary embolism. REVIEW OF SYSTEMS At the time of my exam: CONSTITUTIONAL: Denies fever or chills. Denies malaise, reports weakness, denies weight gain or weight loss. CARDIOVASCULAR: Denies chest pain, orthopnea, PND, palpitations, or edema. RESPIRATORY: Denies cough, shortness of breath, or wheezing GASTROINTESTINAL: Denies diarrhea, constipation, nausea or vomiting. Positive mid abdominal pain MUSCULOSKELETAL: Denies myalgias. NEUROLOGIC: Denies numbness, tingling. ENDOCRINE: Denies fatigue, weight change, polydipsia or polyurina. GENITOURINARY: Denies burning, hematuria or urgency with micturation. History of heavy menstrual cycles. HEMATOLOGIC: Denies history of anemia or bleeding. PHYSICAL EXAMINATION HEENT: Head is atraumatic, normocephalic. Pupils equal, round. Sclerae is an icteric. NECK: Supple. No JVD. No lymphadenopathy. No thyromegaly. LUNGS: Clear to auscultation. No wheezes or rhonchi. No intercostal retractions. HEART: Regular rate and rhythm. No murmur. ABDOMEN: Soft. Bowel sounds hypoactive. No masses. Mild tenderness on palpation. : Paz catheter in place. EXTREMITIES: No pedal edema. No calf tenderness. NEUROLOGICAL: Patient is awake, alert and oriented x3. Cranial nerves 2 through 12 are grossly intact. ASSESSMENT AND PLAN 1. History of Abnormal uterine bleeding post ablation, total hysterectomy postop day 1. Continue current pain management. Plan to advance diet for evening meal. 2. Diabetes mellitus type II uncontrolled with hyperglycemia. Continue Levemir 15 units at bed along with NovoLog sliding scale, NovoLog 5 units with meals added. Actos 45 mg daily and metformin 500 mg twice a day 3. Hypotension with near syncopal episodes and fall. CAT scan of the brain was negative for acute findings. Patient is status post fluid bolus of 1500 ML's. Transfer patient to cardiac stepdown unit. 4. Elevated d-dimer. CTA of the chest negative for pulmonary embolism. 5. Mild intermittent asthma, on albuterol nebulizers as needed 6. GERD on Pepcid 20 mg daily 7. Hypertension, on Aldactone and Lasix at home will monitor for the need to resume. 8. Fibromyalgia, on Cymbalta 60 mg daily 9. Iron deficiency, on iron 325MG twice a day 10. GI prophylaxis on Pepcid daily 11. DVT prophylaxis sequential compression devices on along with heparin subcu 12. Hyperglycemia, likely due to Decadron IV 1 home medications were resumed along with sliding scale DISCHARGE PLAN Home. Impression and plan of care have been directed as dictated by the signing physician. Radha Nair nurse practitioner acting as scribe for signing physician. Objective - Vital Signs Vital signs: Vital Signs Temp 97.7 F 09/02/20 04:00 Pulse 89 09/02/20 04:00 Resp 19 09/02/20 04:00 BP 121/71 09/02/20 04:00 Pulse Ox 96 09/02/20 04:00 Intake & Output 09/01/20 09/02/20 09/02/20 18:59 06:59 18:59 Intake Total 700 Output Total 760 300 Balance -60 -300 Intake: IV 700 Output: Urine 710 280 Uretheral (Paz) 400 Emesis 20 Estimated Blood Loss 50 Other: # Voids 1 - Labs CBC & Chem 7: 09/02/20 07:42 09/02/20 07:42 Labs: Abnormal Lab Results - Last 24 Hours (Table) 09/01/20 09/01/20 09/01/20 Range/Units 09:23 12:42 17:19 POC Glucose (mg/dL) 299 H 298 H 274 H (75-99) mg/dL 09/01/20 09/02/20 Range/Units 20:18 07:40 POC Glucose (mg/dL) 275 H 282 H (75-99) mg/dL
--- NOTE | 2020-09-02 14:20 | CT ---
EXAMINATION TYPE: CT angio chest DATE OF EXAM: 09/02/2020 COMPARISON: None HISTORY: Hypotension, elev. Ddimer CT DLP: 464.6 mGycm CONTRAST: CT chest with contrast and 3D reconstruction with MIP imaging is performed with IV Contrast, patient injected with 68 mL of Isovue 370. Contrast-enhanced CT of the chest was performed through the course of the pulmonary arteries with myriam g and mediastinal window settings submitted. 3D reconstruction with MIP imaging was also performed. PULMONARY ARTERIES: The pulmonary arteries and their major tributaries are patent. I do not see jose dence for sizable filling defect to suggest pulmonary embolic process. LUNGS: Scattered basilar infiltrates and/or atelectasis. No pulmonary nodule or mass is detected. No pleural effusion. MEDIASTINUM: Thoracic aorta is of normal caliber,however, evaluation is limited given timing of the contrast bolus. If there is concern for thoracic aortic pathology consider JOE. Correlate clinicall y . The heart is not enlarged. No evidence for mediastinal mass. No mediastinal lymph nodes greater than 1cm. HILAR STRUCTURES: No evidence for mass. No hilar lymph nodes greater than 1 cm. UPPER ABDOMEN: No significant abnormality is seen. IMPRESSION: 1. No evidence for Pulmonary embolism at this time.
[2020-09-02 16:03] LABS: Appearance,Urine Clear (Clear); Bilirubin,Urine Negative (Negative); Blood,Urine Negative (Negative); Color,Urine Yellow; Glucose,Urine (UA) 4+ (Negative); Hyaline Casts,Urine 1 /lpf (0-2); Ketones,Urine Trace (Negative); Leukocyte Esterase,Urine Small (Negative); Mucus,Urine Rare /hpf; Nitrite,Urine Negative (Negative); PH, Urine 5.5 (5.0-8.0); Protein,Urine Trace (Negative); RBC,Urine 2 /hpf (0-5); Specific Gravity,Urine 1.037 (1.001-1.035); Squamous Epithelial Cell,Urine <1 /hpf (0-4); Urobilinogen,Urine <2.0 mg/dL (<2.0); WBC,Urine 12 /hpf (0-5)
--- NOTE | 2020-09-02 16:57 | P.PN ---
Progress Note - Text Progress Note Date: 09/02/20 Pebbles was transferred to another unit due to her lightheaded and unsteadyness. she relates this is not normal for her and this does not happen at home. IM is caring for her with these sx. it is noted that a CT was done to r/o PE due to increased d-dimer (which may be elevated due to surgery) but was normal. head CT also normal. unclear why she is now having the sx. She is seen and evaluated and resting comfortably at this time. denies any major issues and relates her pain is much improved. we are advancing her diet as she has passed flatus this afternoon as well. they have not tried again to get her up as she had another near syncope like episode earlier this afternoon. PT/OT will see her tomorrow. From my yeast pumper perspective very little has changed and she appears to be stable post-operatively (speaking solely from a surgical perspective). Will continue to monitor her carefully. Dr. Lopez is assuming care from my group for the weekend. your medical management is appreciated.
[2020-09-02 17:07] LABS: Glucose,Whole Blood 281 mg/dL (75-99)
[2020-09-02] MEDS: ACETAMINOPHEN TAB 325 MG TAB PO PRN (17:43)
[2020-09-02 20:48] LABS: Glucose,Whole Blood 285 mg/dL (75-99)
[2020-09-02] MEDS: FAMOTIDINE 20 MG TAB PO SCH (21:26)
[2020-09-02] MEDS: INSULIN DETEMIR (LEVEMIR) 100 UNIT/ML SYR SQ SCH (21:27)
[2020-09-03 06:57] LABS: Glucose,Whole Blood 320 mg/dL (75-99)
[2020-09-03] MEDS: INSULIN ASPART (NovoLOG) 100 UNIT/ML VIAL SQ SCH ×7 (06:57→21:05)
--- NOTE | 2020-09-03 07:02 | P.PN ---
Progress Note - Text Progress Note Date: 09/03/20 Post operative day #2. Please see dictated progress note per Dr. Ventura on yesterday's events. Patient apparently had an episode of lightheadedness or syncope and did fall yesterday. Patient was evaluated by medicine and for the most part was negative. Patient is transferred to a different floor for closer observation. Patient states that she had another episode yesterday but is feeling well this morning. She states that she is urinating without difficulty and is eating regular food. Vital signs are stable and she is afebrile. Her incision has a small area of redness on the dressing which is going to be left in place for 7 days. There is not appear to be any active bleeding. I did order another CBC which is pending at this time but I do not believe that her syncopal episode is related to low hemoglobin. Plan today is to continue routine postoperative care and will also follow with medicine for her diabetes and management of her syncope. We did discuss discharge planning she would like to go home soon however I told her she has to be feeling well and tolerating oral pain medications and ambulating without difficulty. Most likely were looking at another 1-2 days.
[2020-09-03 07:14] LABS: Basophils % (A) 0 %; Eosinophils # (A) 0.1 k/uL (0-0.7); Eosinophils % (A) 1 %; HCT 24.9 % (34.0-46.0); Lymphocytes # (A) 1.3 k/uL (1.0-4.8); Lymphocytes % (A) 10 %; MCH 31.3 pg (25.0-35.0); MCHC 31.7 g/dL (31.0-37.0); MCV 98.8 fL (80.0-100.0); Mean Platelet Volume 10.1; Monocytes # (A) 1.1 k/uL (0-1.0); Monocytes % (A) 9 %; Neutrophils # (A) 10.2 k/uL (1.3-7.7); Neutrophils % (A) 78 %; Platelet Count 252 k/uL (150-450); RBC 2.52 m/uL (3.80-5.40); RDW 13.1 % (11.5-15.5); WBC 13.1 k/uL (3.8-10.6)
[2020-09-03 07:21] LABS: HGB 7.9 gm/dL (11.4-16.0)
[2020-09-03 07:23] LABS: Albumin 3.1 g/dL (3.5-5.0); Calcium 8.9 mg/dL (8.4-10.2); Potassium 4.2 mmol/L (3.5-5.1); Total Bilirubin 0.5 mg/dL (0.2-1.3); Total Protein 5.8 g/dL (6.3-8.2)
[2020-09-03] MEDS ORDERED: SODIUM FERRIC GLUCONAT-SUCROSE 125 MG in SODIUM CHLORIDE 0.9% 100 ML IVPB ONE (09:00)
--- NOTE | 2020-09-03 09:09 | P.PN ---
Progress Note - Text Progress Note Date: 09/03/20 This is an update on patient's lab results. CBC today shows a hemoglobin of 7.9 was 10.8 yesterday then approximately 12-1/2 preoperatively. Patient's vital signs are stable. This anemia as most likely surgically related. At this time I will start her on some chromogen and will repeat CBC tomorrow morning. If her hemoglobin were to continue to drop at that time we discuss possible blood transfusion.
[2020-09-03] MEDS: HEPARIN SODIUM,PORCINE 5,000 UNIT/ML 1 ML VIAL SQ SCH ×3 (09:30→23:53)
[2020-09-03] MEDS: SENNOSIDES-DOCUSATE SODIUM 1 EACH TAB PO SCH ×2 (09:31→21:05)
[2020-09-03] MEDS: PIOGLITAZONE 45 MG TAB PO SCH (09:31)
[2020-09-03] MEDS: DULoxetine HCL 60 MG CAPSULE.DR PO SCH (09:34)
[2020-09-03] MEDS: INSULIN DETEMIR (LEVEMIR) 100 UNIT/ML SYR SQ SCH ×2 (09:34→21:05)
--- NOTE | 2020-09-03 11:47 | P.HPIM ---
History of Present Illness H&P Date: 09/03/20 HISTORY OF PRESENT ILLNESS This is a 50-year-old female patient of Dr. Bush with known medical history significant for diabetes mellitus, fibromyalgia, GERD, asthma, hypertension, and osteoarthritis. She also has had heavy menstrual bleeding with menorrhea requiring ablation in January that was unsuccessful. She was admitted today with Dr. Pascal and underwent a total hysterectomy with salpingectomy, left ovarian cystostomy with ovarian repair, lysis of adhesions on bladder. Patient was seen resting in bed reports pain is a 5.5 out of 10, just had received Toradol but otherwise doing okay. Vital signs are stable temperature 97.5, pulse 90, blood pressure 125/70, pulse ox 96% on room air. Paz catheter is in place at this time. We'll follow patient along for medical management. 09/02: Received call early this morning the patient had a fall in her room well with the nursing students. Patient states she bumped her head she fell forward onto the floor. Her Paz catheter was removed this morning. She states she is sore but better from yesterday. Pain is a #6/10. Initial blood pressure at the time of incident was low but improved on recheck and despite that, 500 mL fluid bolus was ordered. Around 9 in the morning, patient's nurse called the patient was hypotensive and A-Team was called. We arrived prior to the A-Team arrival to assess the patient. Patient was awake and alert. Her blood pressure was on the low side in the another 1 L of IV fluids ordered. Her heart rate was controlled. She has not voided since Paz was removed. At the time of evaluation, patient was again hemodynamically stable. The following tests were ordered. Chest x-ray showed patchy density in the right medial lung base may reflect developing infiltrate. CAT scan of the brain showed no acute intracranial hemorrhage or midline shift. CBC revealed WBC of 15.3, hemoglobin 10.8, platelet count 317. Sodium 133 otherwise electrolytes normal, BUN 29 creatinine 1.1. Blood sugars running in the 200s to 300s. CK 206 D-dimer came back elevated at 1.81 and CTA of the chest was ordered which revealed no evidence of pulmonary embolism. 09/03: Patient had a drop in her hemoglobin from 10.8-7.9 this morning. Unknown source of bleeding. A small amount of blood was noted on the mother pad. Iron study to be completed. And infusion of an inferior. Blood sugars remained to be elevated. Increase Lantus and sliding scale NovoLog coverage. We will DC metformin due to contrast. Patient's last bowel movement was on Saturday. Patient is found to be resting comfortably in no acute distress. She is complaining of some dizziness and mild abdominal discomfort. Patient has been afebrile, heart rate 110, respirations 18 blood pressure 08/25/1979, pulse oximetry 100% on 2 L. REVIEW OF SYSTEMS At the time of my exam: CONSTITUTIONAL: Denies fever or chills. Denies malaise, reports weakness, denies weight gain or weight loss. CARDIOVASCULAR: Denies chest pain, orthopnea, PND, palpitations, or edema. RESPIRATORY: Denies cough, shortness of breath, or wheezing GASTROINTESTINAL: Denies diarrhea, constipation, nausea or vomiting. Positive mid abdominal pain MUSCULOSKELETAL: Denies myalgias. NEUROLOGIC: Denies numbness, tingling. ENDOCRINE: Denies fatigue, weight change, polydipsia or polyurina. GENITOURINARY: Denies burning, hematuria or urgency with micturation. History of heavy menstrual cycles. HEMATOLOGIC: Denies history of anemia or bleeding. PHYSICAL EXAMINATION HEENT: Head is atraumatic, normocephalic. Pupils equal, round. Sclerae is anicteric. NECK: Supple. No JVD. No lymphadenopathy. No thyromegaly. LUNGS: Clear to auscultation. No wheezes or rhonchi. No intercostal retractions. HEART: Regular rate and rhythm. No murmur. ABDOMEN: Soft. Bowel sounds hypoactive. No masses. Mild tenderness on palpation. : Paz catheter in place. EXTREMITIES: No pedal edema. No calf tenderness. NEUROLOGICAL: Patient is awake, alert and oriented x3. Cranial nerves 2 through 12 are grossly intact. ASSESSMENT AND PLAN 1. History of Abnormal uterine bleeding post ablation, total hysterectomy postop day 1. Continue current pain management. Plan to advance diet for evening meal. 2. Diabetes mellitus type II uncontrolled with hyperglycemia. Increase Levemir 20 units at bed along with NovoLog sliding scale, NovoLog 7 units with meals added. Actos 45 mg daily and hold metformin 500 mg twice a day 3. Hypotension with near syncopal episodes and fall. CAT scan of the brain was negative for acute findings. Patient is status post fluid bolus of 1500 ML's. Transfer patient to cardiac stepdown unit. 4. Elevated d-dimer. CTA of the chest negative for pulmonary embolism. 5. Mild intermittent asthma, on albuterol nebulizers as needed 6. GERD on Pepcid 20 mg daily 7. Hypertension, on Aldactone and Lasix at home will monitor for the need to resume. 8. Fibromyalgia, on Cymbalta 60 mg daily 9. Iron deficiency, on iron 325MG twice a day. Iron study to be completed with a transfusion of interfere 10. GI prophylaxis on Pepcid daily 11. DVT prophylaxis sequential compression devices on along with heparin subcu 12. Hyperglycemia, likely due to Decadron IV 1 home medications were resumed along with sliding scale 13. Drop in hemoglobin. Continue to monitor hemoglobin, no source of bleeding, may require blood transfusion. 14. Chronic kidney disease stage III, stable DISCHARGE PLAN Home. Impression and plan of care have been directed as dictated by the signing physician. Jessica Cain nurse practitioner acting as scribe for signing physician. Past Medical History Past Medical History: Diabetes Mellitus, Fibromyalgia, GERD/Reflux, Hypertension, Osteoarthritis (OA) Additional Past Medical History / Comment(s): having heavy menses, HISTORY OF LOW BLOOD COUNT. History of Any Multi-Drug Resistant Organisms: None Reported Past Surgical History: Section, Cholecystectomy, Hernia Repair, Tubal Ligation, Uterine Ablation Additional Past Surgical History / Comment(s): COLONOSCOPY/EGD. hiatal hernia repair, oral surgery, D&C,total left knee Past Anesthesia/Blood Transfusion Reactions: No Reported Reaction Additional Past Anesthesia/Blood Transfusion Reaction / Comment(s): no problems with prior blood transfusions Smoking Status: Never smoker - Past Family History Father Family Medical History: Deep Vein Thrombosis (DVT) Mother Family Medical History: No Reported History Medications and Allergies Home Medications Medication Instructions Recorded Confirmed Type Albuterol Inhaler [Ventolin Hfa 1 puff INHALATION QID PRN 01/28/20 09/01/20 History Inhaler] DULoxetine HCL [Cymbalta] 60 mg PO QAM 01/28/20 09/01/20 History Insulin Glargine [Lantus] 15 unit SQ HS 01/28/20 09/01/20 History Insulin Lispro [humaLOG Kwikpen] 10 unit SQ AC-BRKFST 01/28/20 09/01/20 History Insulin Lispro [humaLOG Kwikpen] 12 unit SQ AC-SUPPER 01/28/20 09/01/20 History Insulin Lispro [humaLOG Kwikpen] 17 unit SQ AC-LUNCH 01/28/20 09/01/20 History [place]-3 Fatty Acids/Fish Oil [Fish 1 each PO DAILY 01/28/20 09/01/20 History Oil 1,000 mg Softgel] Vitamin B Complex 1 each PO DAILY 01/28/20 09/01/20 History metFORMIN HCL [Glucophage] 500 mg PO BID 01/28/20 09/01/20 History Calcitriol [Rocaltrol] 0.25 mcg PO SUWE 06/24/20 09/01/20 History Famotidine [Pepcid] 20 mg PO HS 06/24/20 09/01/20 History Ferrous Sulfate [Iron] 325 mg PO BID 06/24/20 09/01/20 History Folic Acid 1 mg PO DAILY 06/24/20 09/01/20 History Magnesium Oxide 400 mg PO BID 06/24/20 09/01/20 History Pioglitazone [Actos] 45 mg PO DAILY 06/24/20 09/01/20 History Allopurinol [Zyloprim] 100 mg PO DAILY 09/01/20 09/01/20 History Cetirizine HCl [Zyrtec] 10 mg PO DAILY 09/01/20 09/01/20 History Furosemide [Lasix] 20 mg PO DAILY 09/01/20 09/01/20 History Spironolactone 25 mg PO 09/01/20 History Allergies Allergy/AdvReac Type Severity Reaction Status Date / Time No Known Allergies Allergy Verified 08/25/20 14:29 Physical Exam Vitals: Vital Signs Temp Pulse Resp BP BP BP BP 09/03/20 09:35 98.5 F 110 H 18 128/80 128/66 138/84 09/03/20 05:34 131/79 134/71 150/81 09/03/20 03:56 98.1 F 98 16 133/76 09/03/20 00:00 98.4 F 105 H 18 118/86 09/02/20 20:00 98.7 F 109 H 18 128/61 09/02/20 15:58 106 H 16 09/02/20 15:43 98.3 F 106 H 16 104/52 09/02/20 11:59 92 16 115/55 Pulse Ox 09/03/20 09:35 100 09/03/20 05:34 09/03/20 03:56 99 09/03/20 00:00 93 L 09/02/20 20:00 94 L 09/02/20 15:58 09/02/20 15:43 99 09/02/20 11:59 99 Intake and Output 09/02/20 09/03/20 09/03/20 22:59 06:59 14:59 Intake Total 580 Output Total 300 Balance -300 580 Intake: Intake, IV Titration 100 Amount Sodium Ferric Gluconat- 100 Sucrose 125 mg In Sodium Chloride 0.9% 100 ml @ 100 mls/hr IVPB ONCE ONE Rx#:[id number] Oral 480 Output: Urine 300 Other: # Voids 1 2 Weight 132 kg Results CBC & Chem 7: 09/03/20 06:03 09/03/20 06:03 Labs: Abnormal Lab Results - Last 24 Hours (Table) 09/02/20 09/02/20 09/02/20 Range/Units 07:42 12:01 17:01 WBC (3.8-10.6) k/uL RBC (3.80-5.40) m/uL Hgb (11.4-16.0) gm/dL Hct (34.0-46.0) % Neutrophils # (1.3-7.7) k/uL Monocytes # (0-1.0) k/uL Sodium 133 L (137-145) mmol/L Chloride (98-107) mmol/L BUN 29 H (7-17) mg/dL Creatinine 1.10 H (0.52-1.04) mg/dL Glucose 326 H (74-99) mg/dL POC Glucose (mg/dL) 339 H 281 H (75-99) mg/dL Alkaline Phosphatase (38-126) U/L Total Protein (6.3-8.2) g/dL Albumin (3.5-5.0) g/dL Ur Specific [place] (1.001-1.035) Urine Protein (Negative) Urine Glucose (UA) (Negative) Urine Ketones (Negative) Ur Leukocyte Esterase (Negative) Urine WBC (0-5) /hpf Urine Mucus (None) /hpf 09/02/20 09/02/20 09/03/20 Range/Units 20:47 Unknown 06:03 WBC (3.8-10.6) k/uL RBC (3.80-5.40) m/uL Hgb (11.4-16.0) gm/dL Hct (34.0-46.0) % Neutrophils # (1.3-7.7) k/uL Monocytes # (0-1.0) k/uL Sodium 131 L (137-145) mmol/L Chloride 97 L (98-107) mmol/L BUN 33 H (7-17) mg/dL Creatinine 1.29 H (0.52-1.04) mg/dL Glucose 278 H (74-99) mg/dL POC Glucose (mg/dL) 285 H (75-99) mg/dL Alkaline Phosphatase 194 H (38-126) U/L Total Protein 5.8 L (6.3-8.2) g/dL Albumin 3.1 L (3.5-5.0) g/dL Ur Specific [place] 1.037 H (1.001-1.035) Urine Protein Trace H (Negative) Urine Glucose (UA) 4+ H (Negative) Urine Ketones Trace H (Negative) Ur Leukocyte Esterase Small H (Negative) Urine WBC 12 H (0-5) /hpf Urine Mucus Rare H (None) /hpf 09/03/20 09/03/20 Range/Units 06:03 06:55 WBC 13.1 H (3.8-10.6) k/uL RBC 2.52 L (3.80-5.40) m/uL Hgb 7.9 L D (11.4-16.0) gm/dL Hct 24.9 L (34.0-46.0) % Neutrophils # 10.2 H (1.3-7.7) k/uL Monocytes # 1.1 H (0-1.0) k/uL Sodium (137-145) mmol/L Chloride (98-107) mmol/L BUN (7-17) mg/dL Creatinine (0.52-1.04) mg/dL Glucose (74-99) mg/dL POC Glucose (mg/dL) 320 H (75-99) mg/dL Alkaline Phosphatase (38-126) U/L Total Protein (6.3-8.2) g/dL Albumin (3.5-5.0) g/dL Ur Specific [place] (1.001-1.035) Urine Protein (Negative) Urine Glucose (UA) (Negative) Urine Ketones (Negative) Ur Leukocyte Esterase (Negative) Urine WBC (0-5) /hpf Urine Mucus (None) /hpf Microbiology - Last 24 Hours (Table) 09/02/20 Unknown Urine Culture - Preliminary Urine,Voided Thrombosis Risk Factor Assmnt - Choose All That Apply Each Factor Represents 1 point: Age 41-60 years, Obesity (BMI >25) Other Risk Factors: Yes Each Risk Factor Represents 2 Points: Major surgery Each Risk Factor Represents 3 Points: Family history of DVT/PE Other congenital or acquired thrombophilia - If yes, enter type in comment: No Thrombosis Risk Factor Assessment Total Risk Factor Score: 7 Thrombosis Risk Factor Assessment Level: High Risk
[2020-09-03 11:48] LABS: Glucose,Whole Blood 406 mg/dL (75-99)
[2020-09-03] MEDS: KETOROLAC 15 MG/ML 1 ML VIAL IVP PRN ×2 (12:48→21:05)
[2020-09-03] MEDS: SODIUM CHLORIDE 0.9% 1,000 ML IV SCH ×2 (15:50→23:52)
[2020-09-03 16:56] LABS: Glucose,Whole Blood 177 mg/dL (75-99)
[2020-09-03 18:13] LABS: % Iron Saturation 8.31 (12.00-45.00)
[2020-09-03 20:10] LABS: Glucose,Whole Blood 161 mg/dL (75-99)
[2020-09-03] MEDS: FAMOTIDINE 20 MG TAB PO SCH (21:05)
[2020-09-04] MEDS: KETOROLAC 15 MG/ML 1 ML VIAL IVP PRN (03:09)
[2020-09-04 06:56] LABS: Glucose,Whole Blood 209 mg/dL (75-99)
[2020-09-04 07:06] LABS: Basophils # (A) 0.1 k/uL (0-0.2); Basophils % (A) 1 %; Eosinophils # (A) 0.8 k/uL (0-0.7); Eosinophils % (A) 6 %; HCT 20.9 % (34.0-46.0); Lymphocytes # (A) 2.5 k/uL (1.0-4.8); Lymphocytes % (A) 21 %; MCH 32.6 pg (25.0-35.0); MCV 98.9 fL (80.0-100.0); Mean Platelet Volume 9.3; Monocytes % (A) 9 %; Neutrophils # (A) 7.4 k/uL (1.3-7.7); Neutrophils % (A) 62 %; Platelet Count 229 k/uL (150-450); RBC 2.11 m/uL (3.80-5.40); WBC 11.9 k/uL (3.8-10.6)
[2020-09-04] MEDS: INSULIN DETEMIR (LEVEMIR) 100 UNIT/ML SYR SQ SCH ×2 (07:08→21:07)
[2020-09-04] MEDS: INSULIN ASPART (NovoLOG) 100 UNIT/ML VIAL SQ SCH ×7 (07:08→21:08)
[2020-09-04 07:25] LABS: HGB 6.9 gm/dL (11.4-16.0)
--- NOTE | 2020-09-04 08:21 | P.PN ---
Progress Note - Text Progress Note Date: 09/04/20 Post operative day #3. Patient is resting without new complaints. She would like to go home. Her vital signs are stable she is afebrile. Patient states that she is urinating frequently without difficulty and is tolerating regular diet. She states that she did have a bowel movement yesterday. I did order a CBC this morning and unfortunately hemoglobin has gone from 7.9 down to 6.9. Given her other medical conditions and the fact that she's had a syncopal type episode here in the hospital, I think it is in her best interest to receive 2 units of packed red blood cells. One unit was already ordered per Medicine but I believe she will benefit from 2 units pRBCs. I discussed this with Pebbles and she states that she has been given blood in the past and she has no problem with getting a blood transfusion. She really would like to go home tomorrow because she has an appointment that is important on Saturday and I told her a blood transfusion will certainly make her feel better and reduce her risk of another syncopal episode. I also noticed that her creatinine appeared to be cl imbing and was 1.29 yesterday. She was given some IV fluid yesterday to see if this would improve. This very well may be secondary to dehydration, however I'm going to repeat metabolic panel today after her blood transfusion. Certainly this is something that we will continue to follow. In general, Pebbles appears to be feeling better and I know she would like to go home, but at this point I have explained to her that she needs to be stable from a medical standpoint before this can happen.
[2020-09-04] MEDS: HEPARIN SODIUM,PORCINE 5,000 UNIT/ML 1 ML VIAL SQ SCH ×3 (09:03→23:27)
[2020-09-04] MEDS: SENNOSIDES-DOCUSATE SODIUM 1 EACH TAB PO SCH ×2 (09:04→21:07)
[2020-09-04] MEDS: DULoxetine HCL 60 MG CAPSULE.DR PO SCH (09:04)
[2020-09-04] MEDS: PIOGLITAZONE 45 MG TAB PO SCH (09:05)
--- NOTE | 2020-09-04 11:21 | P.PN ---
Subjective Progress Note Date: 09/04/20 HISTORY OF PRESENT ILLNESS This is a 50-year-old female patient of Dr. Bush with known medical history significant for diabetes mellitus, fibromyalgia, GERD, asthma, hypertension, and osteoarthritis. She also has had heavy menstrual bleeding with menorrhea requiring ablation in January that was unsuccessful. She was admitted today with Dr. Pascal and underwent a total hysterectomy with salpingectomy, left ovarian cystostomy with ovarian repair, lysis of adhesions on bladder. Patient was seen resting in bed reports pain is a 5.5 out of 10, just had received Toradol but otherwise doing okay. Vital signs are stable temperature 97.5, pulse 90, blood pressure 125/70, pulse ox 96% on room air. Paz catheter is in place at this time. We'll follow patient along for medical management. 09/02: Received call early this morning the patient had a fall in her room well with the nursing students. Patient states she bumped her head she fell forward onto the floor. Her Paz catheter was removed this morning. She states she is sore but better from yesterday. Pain is a #6/10. Initial blood pressure at the time of incident was low but improved on recheck and despite that, 500 mL fluid bolus was ordered. Around 9 in the morning, patient's nurse called the patient was hypotensive and A-Team was called. We arrived prior to the A-Team arrival to assess the patient. Patient was awake and alert. Her blood pressure was on the low side in the another 1 L of IV fluids ordered. Her heart rate was controlled. She has not voided since Paz was removed. At the time of eval uation, patient was again hemodynamically stable. The following tests were ordered. Chest x-ray showed patchy density in the right medial lung base may reflect developing infiltrate. CAT scan of the brain showed no acute intracranial hemorrhage or midline shift. CBC revealed WBC of 15.3, hemoglobin 10.8, platelet count 317. Sodium 133 otherwise electrolytes normal, BUN 29 creatinine 1.1. Blood sugars running in the 200s to 300s. CK 206 D-dimer came back elevated at 1.81 and CTA of the chest was ordered which revealed no evidence of pulmonary embolism. 09/03: Patient had a drop in her hemoglobin from 10.8-7.9 this morning. Unknown source of bleeding. A small amount of blood was noted on the mother pad. Iron study to be completed. And infusion of an inferior. Blood sugars remained to be elevated. Increase Lantus and sliding scale NovoLog coverage. We will DC metformin due to contrast. Patient's last bowel movement was on Saturday. Patient is found to be resting comfortably in no acute distress. She is complaining of some dizziness and mild abdominal discomfort. Patient has been afebrile, heart rate 110, respirations 18 blood pressure 08/25/1979, pulse oximetry 100% on 2 L. 09/04: Patient's hemoglobin 6.9 today down from 7.9 yesterday and 10.8 on 09/02/2020. She will have 2 units of packed red blood cells transfused. Orthostatics blood pressures were unremarkable. Patient states that she has no dizziness or lightheadedness. She has been ambulatory down the mg without any difficulties. Patient has been up in the chair. Patient states she continues to have some abdominal tenderness however the pain is tolerable. Scant bleeding noted on the mother's pad. REVIEW OF SYSTEMS At the time of my exam: CONSTITUTIONAL: Denies fever or chills. Denies malaise, reports weakness, denies weight gain or weight loss. CARDIOVASCULAR: Denies chest pain, orthopnea, PND, palpitations, or edema. RESPIRATORY: Denies cough, shortness of breath, or wheezing GASTROINTESTINAL: Denies diarrhea, constipation, nausea or vomiting. Positive mid abdominal pain MUSCULOSKELETAL: Denies myalgias. NEUROLOGIC: Denies numbness, tingling. ENDOCRINE: Denies fatigue, weight change, polydipsia or polyurina. GENITOURINARY: Denies burning, hematuria or urgency with micturation. History of heavy menstrual cycles. HEMATOLOGIC: Denies history of anemia or bleeding. PHYSICAL EXAMINATION HEENT: Head is atraumatic, normocephalic. Pupils equal, round. Sclerae is anicteric. NECK: Supple. No JVD. No lymphadenopathy. No thyromegaly. LUNGS: Clear to auscultation. No wheezes or rhonchi. No intercostal retractions. HEART: Regular rate and rhythm. No murmur. ABDOMEN: Soft. Bowel sounds hypoactive. No masses. Mild tenderness on p alpation. : Paz catheter in place. EXTREMITIES: No pedal edema. No calf tenderness. NEUROLOGICAL: Patient is awake, alert and oriented x3. Cranial nerves 2 through 12 are grossly intact. ASSESSMENT AND PLAN 1. History of Abnormal uterine bleeding post ablation, total hysterectomy postop day 1. Continue current pain management. Plan to advance diet for evening meal. 2. Diabetes mellitus type II uncontrolled with hyperglycemia. Increase Levemir 20 units at bed along with NovoLog sliding scale, NovoLog 7 units with meals added. Actos 45 mg daily and hold metformin 500 mg twice a day 3. Hypotension with near syncopal episodes and fall. CAT scan of the brain was negative for acute findings. Patient is status post fluid bolus of 1500 ML's. Transfer patient to cardiac stepdown unit. 4. Elevated d-dimer. CTA of the chest negative for pulmonary embolism. 5. Mild intermittent asthma, on albuterol nebulizers as needed 6. GERD on Pepcid 20 mg daily 7. Hypertension, on Aldactone and Lasix at home will monitor for the need to resume. 8. Fibromyalgia, on Cymbalta 60 mg daily 9. Iron deficiency, on iron 325MG twice a day. Iron study to be completed with a transfusion of interfere 10. GI prophylaxis on Pepcid daily 11. DVT prophylaxis sequential compression devices on along with heparin subcu 12. Hyperglycemia, likely due to Decadron IV 1 home medications were resumed along with sliding scale 13. Drop in hemoglobin. Continue to monitor hemoglobin, no source of bleeding, 2 units of packed red blood cells ordered, orthostatic blood pressure negative , 0.9 saline at 75 mL an hour 14. Chronic kidney disease stage III, stable DISCHARGE PLAN Home. Impression and plan of care have been directed as dictated by the signing physician. Jessica Cain nurse practitioner acting as scribe for signing physician. Objective - Vital Signs Vital signs: Vital Signs Temp 98.1 F 09/04/20 08:00 Pulse 94 09/04/20 08:00 Resp 18 09/04/20 08:00 BP 131/72 09/04/20 08:00 Pulse Ox 96 09/04/20 08:00 Intake & Output 09/03/20 09/04/20 09/04/20 18:59 06:59 18:59 Intake Total 1060 360 Output Total 100 Balance 1060 260 Weight 129.1 kg Intake: Intake, IV Titration 100 Amount Sodium Ferric Gluconat- 100 Sucrose 125 mg In Sodium Chloride 0.9% 100 ml @ 100 mls/hr IVPB ONCE ONE Rx#:[id number] Oral 960 360 Output: Urine 100 Other: # Voids 1 3 1 # Bowel Movements 1 - Labs CBC & Chem 7: 09/04/20 06:55 09/03/20 06:03 Labs: Abnormal Lab Results - Last 24 Hours (Table) 09/03/20 09/03/20 09/03/20 Range/Units 06:03 11:47 16:54 WBC (3.8-10.6) k/uL RBC (3.80-5.40) m/uL Hgb (11.4-16.0) gm/dL Hct (34.0-46.0) % Eosinophils # (0-0.7) k/uL POC Glucose (mg/dL) 406 H 177 H (75-99) mg/dL Iron 28 L (50-170) ug/dL % Saturation 8.31 L (12.00-45.00) Crossmatch 09/03/20 09/04/20 09/04/20 Range/Units 20:09 06:55 06:55 WBC 11.9 H (3.8-10.6) k/uL RBC 2.11 L (3.80-5.40) m/uL Hgb 6.9 L* (11.4-16.0) gm/dL Hct 20.9 L (34.0-46.0) % Eosinophils # 0.8 H (0-0.7) k/uL POC Glucose (mg/dL) 161 H 209 H (75-99) mg/dL Iron (50-170) ug/dL % Saturation (12.00-45.00) Crossmatch 09/04/20 Range/Units 07:46 WBC (3.8-10.6) k/uL RBC (3.80-5.40) m/uL Hgb (11.4-16.0) gm/dL Hct (34.0-46.0) % Eosinophils # (0-0.7) k/uL POC Glucose (mg/dL) (75-99) mg/dL Iron (50-170) ug/dL % Saturation (12.00-45.00) Crossmatch See Detail Microbiology - Last 24 Hours (Table) 09/02/20 Unknown Urine Culture - Final Urine,Voided 09/02/20 09:45 Blood Culture - Preliminary Blood No Growth after 24 hours
[2020-09-04 12:02] LABS: Glucose,Whole Blood 196 mg/dL (75-99)
[2020-09-04 16:54] LABS: Glucose,Whole Blood 133 mg/dL (75-99)
[2020-09-04] MEDS: SODIUM CHLORIDE 0.9% 1,000 ML IV SCH (17:29)
[2020-09-04 20:33] LABS: Glucose,Whole Blood 104 mg/dL (75-99)
[2020-09-04 20:46] LABS: Basophils # (A) 0.1 k/uL (0-0.2); Basophils % (A) 1 %; Eosinophils # (A) 0.9 k/uL (0-0.7); Eosinophils % (A) 8 %; HCT 25.1 % (34.0-46.0); Lymphocytes # (A) 2.3 k/uL (1.0-4.8); Lymphocytes % (A) 20 %; MCH 32.3 pg (25.0-35.0); MCHC 34.1 g/dL (31.0-37.0); MCV 94.8 fL (80.0-100.0); Mean Platelet Volume 9.6; Monocytes # (A) 1.1 k/uL (0-1.0); Monocytes % (A) 9 %; Neutrophils % (A) 61 %; Platelet Count 265 k/uL (150-450); RBC 2.65 m/uL (3.80-5.40); RDW 14.8 % (11.5-15.5); WBC 11.5 k/uL (3.8-10.6)
[2020-09-04] MEDS: LACTATED RINGERS 1,000 ML IV SCH (20:56)
[2020-09-04 21:01] LABS: HGB 8.6 gm/dL (11.4-16.0)
[2020-09-04] MEDS: FAMOTIDINE 20 MG TAB PO SCH (21:07)
[2020-09-04] MEDS: ACETAMINOPHEN TAB 325 MG TAB PO PRN (21:08)
[2020-09-04 21:13] LABS: Albumin 3.2 g/dL (3.5-5.0); Calcium 9.1 mg/dL (8.4-10.2); Potassium 4.3 mmol/L (3.5-5.1); Total Bilirubin 1.2 mg/dL (0.2-1.3); Total Protein 6.1 g/dL (6.3-8.2)
[2020-09-05 01:28] LABS: Glucose,Whole Blood 151 mg/dL (75-99)
[2020-09-05] MEDS: SODIUM CHLORIDE 0.9% 1,000 ML IV SCH ×2 (02:57→09:19)
[2020-09-05 08:36] LABS: Glucose,Whole Blood 206 mg/dL (75-99)
--- NOTE | 2020-09-05 09:09 | P.PN ---
Progress Note - Text Progress Note Date: 09/05/20 Back is doing very well this morning. She is ambulating, voiding and tolerating her diet. She's been up in the halls and has had no problems or issues. She is not dizzy or lightheaded. She is requesting discharge to home today and medicine is seeing her at this time. We'll plan to continue care through at least this morning into the afternoon and if she continues to have good progress and no other setbacks will plan to discharge her home later today at her request. She does have a court date tomorrow and that is part of the reason she needs to be discharged today if at all possible. Her vital signs are stable and she is afebrile. Please see medicines note for further information. She is receiving iron transfusion today.
[2020-09-05] MEDS ORDERED: SODIUM FERRIC GLUCONAT-SUCROSE 125 MG in SODIUM CHLORIDE 0.9% 100 ML IVPB ONE (09:15)
[2020-09-05] MEDS: DULoxetine HCL 60 MG CAPSULE.DR PO SCH (09:17)
[2020-09-05] MEDS: SENNOSIDES-DOCUSATE SODIUM 1 EACH TAB PO SCH (09:17)
[2020-09-05] MEDS: INSULIN ASPART (NovoLOG) 100 UNIT/ML VIAL SQ SCH ×4 (09:17→11:50)
[2020-09-05] MEDS: HEPARIN SODIUM,PORCINE 5,000 UNIT/ML 1 ML VIAL SQ SCH (09:17)
[2020-09-05] MEDS: INSULIN DETEMIR (LEVEMIR) 100 UNIT/ML SYR SQ SCH (09:18)
[2020-09-05] MEDS: PIOGLITAZONE 45 MG TAB PO SCH (09:42)
[2020-09-05] MEDS: ACETAMINOPHEN TAB 325 MG TAB PO PRN (10:42)
[2020-09-05 10:51] VITALS: BP 151/79; PULSE 93; RESP 16; TEMP 97.9
[2020-09-05 11:42] LABS: Glucose,Whole Blood 364 mg/dL (75-99)
--- NOTE | 2020-09-05 13:13 | P.PN ---
Subjective Progress Note Date: 09/05/20 HISTORY OF PRESENT ILLNESS This is a 50-year-old female patient of Dr. Bush with known medical history significant for diabetes mellitus, fibromyalgia, GERD, asthma, hypertension, and osteoarthritis. She also has had heavy menstrual bleeding with menorrhea requiring ablation in January that was unsuccessful. She was admitted today with Dr. Pascal and underwent a total hysterectomy with salpingectomy, left ovarian cystostomy with ovarian repair, lysis of adhesions on bladder. Patient was seen resting in bed reports pain is a 5.5 out of 10, just had received Toradol but otherwise doing okay. Vital signs are stable temperature 97.5, pulse 90, blood pressure 125/70, pulse ox 96% on room air. Paz catheter is in place at this time. We'll follow patient along for medical management. 09/02: Received call early this morning the patient had a fall in her room well with the nursing students. Patient states she bumped her head she fell forward onto the floor. Her Paz catheter was removed this morning. She states she is sore but better from yesterday. Pain is a #6/10. Initial blood pressure at the time of incident was low but improved on recheck and despite that, 500 mL fluid bolus was ordered. Around 9 in the morning, patient's nurse called the patient was hypotensive and A-Team was called. We arrived prior to the A-Team arrival to assess the patient. Patient was awake and alert. Her blood pressure was on the low side in the another 1 L of IV fluids ordered. Her heart rate was controlled. She has not voided since Paz was removed. At the time of nicolasa luation, patient was again hemodynamically stable. The following tests were ordered. Chest x-ray showed patchy density in the right medial lung base may reflect developing infiltrate. CAT scan of the brain showed no acute intracranial hemorrhage or midline shift. CBC revealed WBC of 15.3, hemoglobin 10.8, platelet count 317. Sodium 133 otherwise electrolytes normal, BUN 29 creatinine 1.1. Blood sugars running in the 200s to 300s. CK 206 D-dimer came back elevated at 1.81 and CTA of the chest was ordered which revealed no evidence of pulmonary embolism. 09/03: Patient had a drop in her hemoglobin from 10.8-7.9 this morning. Unknown source of bleeding. A small amount of blood was noted on the mother pad. Iron study to be completed. And infusion of an inferior. Blood sugars remained to be elevated. Increase Lantus and sliding scale NovoLog coverage. We will DC metformin due to contrast. Patient's last bowel movement was on Saturday. Patient is found to be resting comfortably in no acute distress. She is complaining of some dizziness and mild abdominal discomfort. Patient has been afebrile, heart rate 110, respirations 18 blood pressure 08/25/1977, pulse oximetry 100% on 2 L. 09/04: Patient's hemoglobin 6.9 today down from 7.9 yesterday and 10.8 on 09/02/2020. She will have 2 units of packed red blood cells transfused. Orthostatics blood pressures were unremarkable. Patient states that she has no dizziness or lightheadedness. She has been ambulatory down the mg without any difficulties. Patient has been up in the chair. Patient states she continues to have some abdominal tenderness however the pain is tolerable. Scant bleeding noted on the mother's pad. 09/05: Patient has been transferred from the cardiac stepdown unit to the pe diatric unit. She denies any complaints today. Her pain is controlled. She is tolerating a diet. No nausea or vomiting. No diarrhea. Patient has been afebrile, heart rate 98, blood pressure 131/79, pulse ox 99% on room air. Blood sugar running between 104 151. No repeat blood work today. Patient received 1 infusion of Ferrlecit. We'll repeat that today prior to discharge. She is status post transfusion 2 units packed RBCs. REVIEW OF SYSTEMS At the time of my exam: CONSTITUTIONAL: Denies fever or chills. Denies malaise, reports weakness, denies weight gain or weight loss. CARDIOVASCULAR: Denies chest pain, orthopnea, PND, palpitations, or edema. RESPIRATORY: Denies cough, shortness of breath, or wheezing GASTROINTESTINAL: Denies diarrhea, constipation, nausea or vomiting. Denies abdominal pain MUSCULOSKELETAL: Denies myalgias. NEUROLOGIC: Denies numbness, tingling. ENDOCRINE: Denies fatigue, weight change, polydipsia or polyurina. GENITOURINARY: Denies burning, hematuria or urgency with micturation. History of heavy menstrual cycles. HEMATOLOGIC: Denies history of anemia or bleeding. PHYSICAL EXAMINATION HEENT: Head is atraumatic, normocephalic. Pupils equal, round. Sclerae is anicteric. NECK: Supple. No JVD. No lymphadenopathy. No thyromegaly. LUNGS: Clear to auscultation. No wheezes or rhonchi. No intercostal retractions. HEART: Regular rate and rhythm. No murmur. ABDOMEN: Soft. Bowel sounds normal. No masses. No tenderness on palpation. : Paz catheter in place. EXTREMITIES: No pedal edema. No calf tenderness. NEUROLOGICAL: Patient is awake, alert and oriented x3. Cranial nerves 2 through 12 are grossly intact. ASSESSMENT AND PLAN 1. History of Abnormal uterine bleeding post ablation, total hysterectomy. Continue current pain management. Patient anticipates discharge home today. 2. Diabetes mellitus type II uncontrolled with hyperglycemia. Continue Levemir 15 units at bed along with NovoLog sliding scale, NovoLog 5 units with meals added. Actos 45 mg daily and metformin 500 mg twice a day. Patient will be resumed on home medications at discharge. Medication reconciliation has been reviewed. 3. Hypotension with near syncopal episodes and fall. CAT scan of the brain was negative for acute findings. Patient is status post fluid bolus of 1500 ML's. Transfer patient to cardiac stepdown unit. 4. Elevated d-dimer. CTA of the chest negative for pulmonary embolism. 5. Mild intermittent asthma, on albuterol nebulizers as needed 6. GERD on Pepcid 20 mg daily 7. Hypertension, on Aldactone and Lasix at home will monitor for the need to r esume. 8. Fibromyalgia, on Cymbalta 60 mg daily 9. Iron deficiency, on iron 325MG twice a day. Ferrlecit infusion 2, transfusion of 2 units packed RBCs. 10. GI prophylaxis on Pepcid daily 11. DVT prophylaxis sequential compression devices on along with heparin subcu 12. Hyperglycemia, likely due to Decadron IV 1 home medications were resumed along with sliding scale DISCHARGE PLAN Home. Impression and plan of care have been directed as dictated by the signing physician. Radha Nair nurse practitioner acting as scribe for signing physician. Objective - Vital Signs Vital signs: Vital Signs Temp 97.7 F 09/05/20 00:00 Pulse 98 09/05/20 04:00 Resp 18 09/05/20 04:00 BP 131/79 09/05/20 04:00 Pulse Ox 99 09/05/20 04:00 Intake & Output 09/04/20 09/05/20 09/05/20 18:59 06:59 18:59 Intake Total 2601 Output Total 100 Balance 2501 Weight 129 kg Intake: Oral 2040 Blood Product 561 Rc Pheresis 2 As3 Unit 278 [id number] Rc Pheresis As-3 Unit 283 [id number] Output: Urine 100 Other: # Voids 2 2 - Labs CBC & Chem 7: 09/04/20 20:28 09/04/20 20:28 Labs: Abnormal Lab Results - Last 24 Hours (Table) 09/04/20 09/04/20 09/04/20 Range/Units 07:46 12:01 16:53 WBC (3.8-10.6) k/uL RBC (3.80-5.40) m/uL Hgb (11.4-16.0) gm/dL Hct (34.0-46.0) % Monocytes # (0-1.0) k/uL Eosinophils # (0-0.7) k/uL Sodium (137-145) mmol/L BUN (7-17) mg/dL POC Glucose (mg/dL) 196 H 133 H (75-99) mg/dL Alkaline Phosphatase (38-126) U/L Total Protein (6.3-8.2) g/dL Albumin (3.5-5.0) g/dL Crossmatch See Detail 09/04/20 09/04/20 09/04/20 Range/Units 20:28 20:28 20:31 WBC 11.5 H (3.8-10.6) k/uL RBC 2.65 L (3.80-5.40) m/uL Hgb 8.6 L D (11.4-16.0) gm/dL Hct 25.1 L (34.0-46.0) % Monocytes # 1.1 H (0-1.0) k/uL Eosinophils # 0.9 H (0-0.7) k/uL Sodium 134 L (137-145) mmol/L BUN 25 H (7-17) mg/dL POC Glucose (mg/dL) 104 H (75-99) mg/dL Alkaline Phosphatase 186 H (38-126) U/L Total Protein 6.1 L (6.3-8.2) g/dL Albumin 3.2 L (3.5-5.0) g/dL Crossmatch 09/05/20 Range/Units 01:10 WBC (3.8-10.6) k/uL RBC (3.80-5.40) m/uL Hgb (11.4-16.0) gm/dL Hct (34.0-46.0) % Monocytes # (0-1.0) k/uL Eosinophils # (0-0.7) k/uL Sodium (137-145) mmol/L BUN (7-17) mg/dL POC Glucose (mg/dL) 151 H (75-99) mg/dL Alkaline Phosphatase (38-126) U/L Total Protein (6.3-8.2) g/dL Albumin (3.5-5.0) g/dL Crossmatch Microbiology - Last 24 Hours (Table) 09/02/20 09:45 Blood Culture - Preliminary Blood No Growth after 48 hours
--- NOTE | 2020-09-05 13:41 | P.DS ---
Providers Date of admission: 09/01/20 05:51 Expected date of discharge: 09/05/20 Attending physician: Rod Ventura Consults: 09/02/20 12:53 Consult Physician Routine Consulting Provider: Shay Stacy Reason/Comments: Medical management Do you want consulting provider notified?: Already Contacted Primary care physician: Feliz Castillo [facility] Course: Kimberly is seen and evaluated this afternoon. She is ambulating without difficulty and the whole has no signs or symptoms of hypovolemia she voices no complaints of dizziness lightheadedness or other changes. She feels significantly improved over yesterday and she is requesting discharge home today. She does not require any pain medicine to go home on. Her incision will be evaluated fully on Saturday 1 week remove her dressing. All questions are answered for her prior to her discharge. Medicine had Gallito seen her and cleared her for discharge. Her hemoglobin this morning was stable at 8.6 and she has received an infusion of iron. She will also take iron at home. All the questions are answered for her and discharge instruction were thoroughly reviewed and she will follow up with me on Saturday. Patient Condition at Discharge: Good Plan - Discharge Summary Discharge Rx Participant: Yes New Discharge Prescriptions: Continue Albuterol Inhaler [Ventolin Hfa Inhaler] 1 puff INHALATION QID PRN PRN Reason: sob DULoxetine HCL [Cymbalta] 60 mg PO QAM metFORMIN HCL [Glucophage] 500 mg PO BID Insulin Glargine [Lantus] 15 unit SQ HS Vitamin B Complex 1 each PO DAILY [place]-3 Fatty Acids/Fish Oil [Fish Oil 1,000 mg Softgel] 1 each PO DAILY Insulin Lispro [humaLOG Kwikpen] 10 unit SQ AC-BRKFST Insulin Lispro [humaLOG Kwikpen] 17 unit SQ AC-LUNCH Insulin Lispro [humaLOG Kwikpen] 12 unit SQ AC-SUPPER Pioglitazone [Actos] 45 mg PO DAILY Folic Acid 1 mg PO DAILY Famotidine [Pepcid] 20 mg PO HS Magnesium Oxide 400 mg PO BID Calcitriol [Rocaltrol] 0.25 mcg PO SUWE Ferrous Sulfate [Iron] 325 mg PO BID Furosemide [Lasix] 20 mg PO DAILY Spironolactone 25 mg PO Cetirizine HCl [Zyrtec] 10 mg PO DAILY Allopurinol [Zyloprim] 100 mg PO DAILY Discharge Medication List Albuterol Inhaler [Ventolin Hfa Inhaler] 1 puff INHALATION QID PRN 01/28/20 [History] DULoxetine HCL [Cymbalta] 60 mg PO QAM 01/28/20 [History] Insulin Glargine [Lantus] 15 unit SQ HS 01/28/20 [History] Insulin Lispro [humaLOG Kwikpen] 10 unit SQ AC-BRKFST 01/28/20 [History] Insulin Lispro [humaLOG Kwikpen] 12 unit SQ AC-SUPPER 01/28/20 [History] Insulin Lispro [humaLOG Kwikpen] 17 unit SQ AC-LUNCH 01/28/20 [History] [place]-3 Fatty Acids/Fish Oil [Fish Oil 1,000 mg Softgel] 1 each PO DAILY 01/28/20 [History] Vitamin B Complex 1 each PO DAILY 01/28/20 [History] metFORMIN HCL [Glucophage] 500 mg PO BID 01/28/20 [History] Calcitriol [Rocaltrol] 0.25 mcg PO SUWE 06/24/20 [History] Famotidine [Pepcid] 20 mg PO HS 06/24/20 [History] Ferrous Sulfate [Iron] 325 mg PO BID 06/24/20 [History] Folic Acid 1 mg PO DAILY 06/24/20 [History] Magnesium Oxide 400 mg PO BID 06/24/20 [History] Pioglitazone [Actos] 45 mg PO DAILY 06/24/20 [History] Allopurinol [Zyloprim] 100 mg PO DAILY 09/01/20 [History] Cetirizine HCl [Zyrtec] 10 mg PO DAILY 09/01/20 [History] Furosemide [Lasix] 20 mg PO DAILY 09/01/20 [History] Spironolactone 25 mg PO 09/01/20 [History] Follow up Appointment(s)/Referral(s): Feliz Bush MD [Primary Care Provider] - 1 Week Rod Ventura DO [Doctor of Osteopathic Medicine] - 09/09/20 Activity/Diet/Wound Care/Special Instructions: Lifting, limit stairs and driving, and pelvic rest. If any high temperatures, heavy bleeding, or severe pain call my office Discharge Disposition: HOME SELF-CARE
[2020-09-05 20:16] LABS: Hemoglobin A1C 8.2 % (4.0-6.0)
== END 2020-09-05 14:17 | disposition home or self-care (01) | DRG 743 ==
LOC: 2ORMAIN 05:51 → 4FBP 10:09 → 3SCARD 09-02 10:44 → 6PED 09-05 08:12
PROVIDERS: ADMIT Obstetrics & Gynecology; ATTEND Obstetrics & Gynecology
PROC: 0TNB0ZZ Release Bladder, Open Approach (ICD-10-PCS; principal; 2020-09-01 07:30)
PROC: 0UT90ZZ Resection of Uterus, Open Approach (ICD-10-PCS; principal; 2020-09-01 07:30)
PROC: 0UT70ZZ Resection of Bilateral Fallopian Tubes, Open Approach (ICD-10-PCS; principal; 2020-09-01 07:30)
PROC: 30233N1 Transfusion of Nonautologous Red Blood Cells into Peripheral Vein, Percutaneous Approach (ICD-10-PCS; 2020-09-04)
DX: N83.202 Unspecified ovarian cyst, left side (principal); E11.22 Type 2 diabetes mellitus with diabetic chronic kidney disease; E11.65 Type 2 diabetes mellitus with hyperglycemia; D50.0 Iron deficiency anemia secondary to blood loss (chronic); I12.9 Hypertensive chronic kidney disease with stage 1 through stage 4 chronic kidney disease, or unspecified chronic kidney disease; J45.20 Mild intermittent asthma, uncomplicated; K21.9 Gastro-esophageal reflux disease without esophagitis; M79.7 Fibromyalgia; N18.30 Chronic kidney disease, stage 3 unspecified; N92.0 Excessive and frequent menstruation with regular cycle; T38.0X5A Adverse effect of glucocorticoids and synthetic analogues, initial encounter; L29.9 Pruritus, unspecified; N94.6 Dysmenorrhea, unspecified; Z79.4 Long term (current) use of insulin; Z79.899 Other long term (current) drug therapy; Z98.891 History of uterine scar from previous surgery
CPT/HCPCS: 36415; 70450; 71045; 71275; 80048; 80053; 81001; 81025; 82550; 83036; 83540; 83550; 85025; 85379; 86850; 86900; 86901; 86920; 87040; 87086; 88307; 93005; 94640